=== PATIENT | female | born 1990 | race American Indian/Alaskan Native ===

== ENCOUNTER 2016-10-24 01:28 | Emergency (ER) | payer MEDICAID ==
[2016-10-24] MEDS ORDERED: Acetaminophen/HYDROcodone 325-10 MG Tab PO ONE (01:50)
[2016-10-24 01:52] VITALS: BP 128/76
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
== END 2016-10-24 02:08 | disposition home or self-care (01) ==
LOC: DL.ED 01:28
DX: M54.17 Radiculopathy, lumbosacral region (principal); K21.9 Gastro-esophageal reflux disease without esophagitis; F17.210 Nicotine dependence, cigarettes, uncomplicated; Z79.899 Other long term (current) drug therapy
CPT/HCPCS: 99282; A9270

== ENCOUNTER 2016-12-10 04:06 | Emergency (ER) | payer MEDICAID ==
[2016-12-10] MEDS ORDERED: Acetaminophen/oxyCODONE 325-5 MG Tab PO ONE (05:31)
[2016-12-10] MEDS ORDERED: predniSONE 20 MG Tab PO ONE (05:31)
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
[2016-12-10 06:34] VITALS: BP 105/83
== END 2016-12-10 06:29 | disposition home or self-care (01) ==
LOC: DL.ED 04:06
DX: M54.42 Lumbago with sciatica, left side (principal); K21.9 Gastro-esophageal reflux disease without esophagitis; F17.210 Nicotine dependence, cigarettes, uncomplicated; Z88.6 Allergy status to analgesic agent; Z88.8 Allergy status to other drugs, medicaments and biological substances
CPT/HCPCS: 96372; 99283; A9270; J2360

== ENCOUNTER 2017-02-25 22:44 | Emergency (ER) | payer MEDICAID ==
[2017-02-25 22:50] VITALS: BP 130/64
[2017-02-25] MEDS ORDERED: Acetaminophen/HYDROcodone 325-10 MG Tab PO ONE (23:03)
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
== END 2017-02-25 23:17 | disposition home or self-care (01) ==
LOC: DL.ED 22:44
DX: M51.16 Intervertebral disc disorders with radiculopathy, lumbar region (principal); K21.9 Gastro-esophageal reflux disease without esophagitis; F17.210 Nicotine dependence, cigarettes, uncomplicated; Z88.8 Allergy status to other drugs, medicaments and biological substances
CPT/HCPCS: 99282; A9270

== ENCOUNTER 2017-05-29 16:05 | Emergency (ER) | payer MEDICAID ==
[2017-05-29] MEDS ORDERED: metroNIDAZOLE 250 MG Tab PO ONE ×2 (16:06→19:30)
[2017-05-29 17:41] VITALS: BP 132/73
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
[2017-05-29 18:22] LABS: ANION GAP 8.1; CHLORIDE,CL 104 mmol/L (101-111); SODIUM,NA 137 mmol/L (135-145)
[2017-05-29] MEDS ORDERED: Dicyclomine 20 MG/2 ML SDV IM ONE (19:30)
[2017-05-29] MEDS ORDERED: metroNIDAZOLE 250 MG Tab ONE (19:41)
== END 2017-05-29 19:53 | disposition home or self-care (01) ==
LOC: DL.ED 16:05
DX: K52.9 Noninfective gastroenteritis and colitis, unspecified (principal); F17.210 Nicotine dependence, cigarettes, uncomplicated; Z88.5 Allergy status to narcotic agent; Z88.8 Allergy status to other drugs, medicaments and biological substances
CPT/HCPCS: 36415; 74176; 80053; 81001; 81025; 85025; 99284; A9270; J0500

== ENCOUNTER 2017-06-26 16:51 | Emergency (ER) | payer MEDICAID | END 2017-06-26 18:52 | disposition left against medical advice (07) | LOC: DL.ED 16:51 | DX: Z53.21 Procedure and treatment not carried out due to patient leaving prior to being seen by health care provider (principal) ==

== ENCOUNTER 2017-10-20 21:53 | Emergency (ER) | payer MEDICAID ==
[2017-10-20 22:14] VITALS: BP 136/72
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
[2017-10-20] MEDS ORDERED: Acetaminophen 325 MG Tab PO ONE (23:25)
== END 2017-10-20 23:51 | disposition home or self-care (01) ==
LOC: DL.ED 21:53
DX: S06.0X1A Concussion with loss of consciousness of 30 minutes or less, initial encounter (principal); F17.210 Nicotine dependence, cigarettes, uncomplicated; W22.8XXA Striking against or struck by other objects, initial encounter; Z88.8 Allergy status to other drugs, medicaments and biological substances
CPT/HCPCS: 70450; 99283; A9270

== ENCOUNTER 2018-01-20 21:21 | Emergency (ER) | payer OTHER, MEDICAID ==
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
[2018-01-20 22:11] LABS: ANION GAP 9.9; CHLORIDE,CL 106 mmol/L (101-111); SODIUM,NA 137 mmol/L (135-145)
[2018-01-20 23:02] VITALS: BP 128/82
--- NOTE | 2018-01-23 16:52 | EKG ---
01/20/2018 - MELISSA DESHPANDE - TIME: 9:24 p.m. FINDINGS: As per my reading, sinus rhythm at 61. Borderline T-wave abnormalities, inferior leads. [facility] /[id number]
== END 2018-01-20 22:58 | disposition home or self-care (01) ==
LOC: DL.ED 21:21
DX: Z33.1 Pregnant state, incidental (principal); R55 Syncope and collapse; Z88.6 Allergy status to analgesic agent; Z88.5 Allergy status to narcotic agent; Z87.891 Personal history of nicotine dependence
CPT/HCPCS: 36415; 80053; 80305-QW; 81001; 81025; 84484; 85025; 93005; 99284

== ENCOUNTER 2018-10-12 20:17 | Emergency (ER) | payer MEDICAID, OTHER ==
[2018-10-12 20:24] VITALS: BP 100/83; PULSE 75
[2018-10-12] MEDS ORDERED: Acetaminophen/HYDROcodone 325-10 MG Tab PO ONE (20:41)
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
== END 2018-10-12 22:06 | disposition home or self-care (01) ==
LOC: DL.ED 20:17
DX: S16.1XXA Strain of muscle, fascia and tendon at neck level, initial encounter (principal); F17.210 Nicotine dependence, cigarettes, uncomplicated; Z88.8 Allergy status to other drugs, medicaments and biological substances; Z88.6 Allergy status to analgesic agent; Z79.899 Other long term (current) drug therapy; W22.8XXA Striking against or struck by other objects, initial encounter
CPT/HCPCS: 70450; 72125; 99283; A9270

== ENCOUNTER 2019-06-10 23:47 | Emergency (ER) | payer MEDICAID | END 2019-06-11 00:27 | disposition left against medical advice (07) | LOC: DL.ED 23:47 | DX: Z53.21 Procedure and treatment not carried out due to patient leaving prior to being seen by health care provider (principal) ==

== ENCOUNTER 2019-07-06 22:35 | Emergency (ER) | payer MEDICAID ==
[2019-07-06 23:19] LABS: ANION GAP 13.7; CHLORIDE,CL 107 mmol/L (101-111); SODIUM,NA 138 mmol/L (135-145)
[2019-07-06] MEDS ORDERED: LORazepam 2 MG/ML SDV IVPUSH ONE (23:37)
[2019-07-06] MEDS ORDERED: Ondansetron 4 MG/2 ML SDV IV ONE (23:38)
[2019-07-06 23:55] LABS: ACETAMINOPHEN 180.7 ug/mL
[2019-07-07] MEDS ORDERED: Sodium Chloride 0.9% 1,000 ML IV ONE (00:43)
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
[2019-07-07 06:08] VITALS: BP 144/82; PULSE 87
== END 2019-07-07 06:10 | disposition home or self-care (01) ==
LOC: DL.ED 22:35
DX: T39.1X4A Poisoning by 4-Aminophenol derivatives, undetermined, initial encounter (principal); R06.4 Hyperventilation; F19.10 Other psychoactive substance abuse, uncomplicated; F17.210 Nicotine dependence, cigarettes, uncomplicated; E66.9 Obesity, unspecified; Z68.42 Body mass index [BMI] 45.0-49.9, adult; Z88.5 Allergy status to narcotic agent; Z88.6 Allergy status to analgesic agent; Z88.8 Allergy status to other drugs, medicaments and biological substances
CPT/HCPCS: 36415; 80053; 80307; 85025; 96361; 96374; 96375; 99284; J2060; J2405; J7030

== ENCOUNTER 2019-11-09 00:11 | Emergency (ER) | payer MEDICAID ==
[2019-11-09] MEDS: Naloxone 2 MG/2 ML Syringe IVPUSH ONE ×2 (00:15→00:23)
[2019-11-09] MEDS ORDERED: Naloxone 2 MG/2 ML Syringe IVPUSH ONE (00:51)
[2019-11-09] MEDS ORDERED: Sodium Chloride 0.9% 1,000 ML IV ONE ×2 (00:51→01:21)
[2019-11-09 00:58] LABS: ANION GAP 13.2 mEq/L (7-13); CHLORIDE,CL 104 mmol/L (98-107); SODIUM,NA 141 mmol/L (136-145)
[2019-11-09] MEDS ORDERED: Ondansetron 4 MG/2 ML SDV ONE (00:58)
[2019-11-09] MEDS ORDERED: Ondansetron 4 MG/2 ML SDV IVPUSH ONE (01:01)
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
== END 2019-11-09 02:45 | disposition home or self-care (01) ==
LOC: DL.ED 00:11
DX: F15.10 Other stimulant abuse, uncomplicated (principal); Z88.6 Allergy status to analgesic agent; Z88.8 Allergy status to other drugs, medicaments and biological substances; E11.9 Type 2 diabetes mellitus without complications; E66.9 Obesity, unspecified
CPT/HCPCS: 36415; 80053; 80305; 81001; 85025; 93005; 96361; 96374; 96375; 99284; J2310; J2405; J7030

== ENCOUNTER 2019-11-19 01:16 | Emergency (ER) | payer MEDICAID ==
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
[2019-11-19 01:33] VITALS: BP 142/64; PULSE 71
[2019-11-19 01:54] LABS: ANION GAP 13.3 mEq/L (7-13); CHLORIDE,CL 107 mmol/L (98-107); SODIUM,NA 145 mmol/L (136-145)
[2019-11-19 01:57] LABS: ACETAMINOPHEN 0 ug/mL (10-30 (Therapeutic))
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
== END 2019-11-19 03:59 | disposition home or self-care (01) ==
LOC: DL.ED 01:16
DX: M54.2 Cervicalgia (principal); F15.10 Other stimulant abuse, uncomplicated; L23.7 Allergic contact dermatitis due to plants, except food; E66.9 Obesity, unspecified; Z88.6 Allergy status to analgesic agent; Z88.8 Allergy status to other drugs, medicaments and biological substances; Z79.899 Other long term (current) drug therapy; Z68.42 Body mass index [BMI] 45.0-49.9, adult; Y04.8XXA Assault by other bodily force, initial encounter
CPT/HCPCS: 36415; 72125; 72128; 80053; 80305-QW; 80307; 81003; 85025; 99284-25

== ENCOUNTER 2019-12-05 15:59 | Emergency (ER) | payer MEDICAID ==
[2019-12-05 16:11] VITALS: BP 110/46; PULSE 82
[2019-12-05] MEDS ORDERED: Sodium Chloride 0.9% 1,000 ML IV SCH (16:45)
[2019-12-05 16:51] LABS: ANION GAP 9.5 mEq/L (7-13); CHLORIDE,CL 105 mmol/L (98-107); SODIUM,NA 140 mmol/L (136-145)
[2019-12-05] MEDS ORDERED: Iopamidol 612 MG/ML 100 ML Bottle IVPUSH ONE (17:44)
--- NOTE | 2019-12-05 18:24 | CT ---
PROCEDURE INFORMATION: Exam: CT Abdomen And Pelvis With Contrast Exam date and time: 12/05/2019 6:03 PM Age: 29 years old Clinical indication: Abdominal pain; Periumbilical; Prior surgery; Surgery date: 6+ months; Surgery type: History of ; Additional info: Bilat CVA tenderness, rlq, llq pain TECHNIQUE: Imaging protocol: Computed tomography of the abdomen and pelvis with intravenous contrast. Radiation optimization: All CT scans at this facility use at least one of these dose optimization techniques: automated exposure control; mA and/or kV adjustment per patient size (includes targeted exams where dose is matched to clinical indication); or iterative reconstruction. Contrast material: ISOVUE 300; Contrast volume: 100 ml; Contrast route: INTRAVENOUS (IV); COMPARISON: CT Abdomen Pelvis wo Cont 05/29/2017 6:16 PM FINDINGS: Lungs: The visualized portions of the lung bases are normal. Heart: The heart is not enlarged. Liver: The liver is normal. Gallbladder and bile ducts: The gallbladder wall is mildly prominent. Pancreas: The pancreas is normal. Spleen: The spleen is normal. Adrenals: The adrenal glands are normal. Kidneys and ureters: The kidneys are normal. The ureters are normal. Stomach and bowel: No over distention of bowel loops is seen. The stomach is normal. Appendix: A normal appendix is identified. Intraperitoneal space: No evidence of intraperitoneal free air. Vasculature: The aorta is normal. Lymph nodes: No pathologic lymph node enlargement is demonstrated. Bladder: The bladder is normal. Reproductive: The uterus is normal. Bones/joints: Unremarkable Soft tissues: The extra-abdominal soft tissues are normal. IMPRESSION: Mildly prominent gallbladder wall without definite evidence of cholecystitis.
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
--- NOTE | 2019-12-05 18:56 | US ---
PROCEDURE INFORMATION: Exam: US Duplex Right Lower Extremity Veins, Limited Exam date and time: 12/05/2019 6:22 PM Age: 29 years old Clinical indication: Abnormal findings; Abnormal lab test; Elevated d-dimer; Patient HX: RT. Calf pain; Additional info: Right calf pain, d dimer 1050 TECHNIQUE: Imaging protocol: Real-time Duplex ultrasound of the Right Lower Extremity with 2-D davenport scale, color Doppler flow and spectral waveform analysis with image documentation. Limited exam was focused on the right lower extremity veins. COMPARISON: No relevant prior studies available. FINDINGS: Right deep veins: Unremarkable. The common femoral, femoral, proximal profunda femoral and popliteal veins are patent without thrombus. Normal Doppler waveforms. Normal compressibility and/or augmentation response. Right superficial veins: Unremarkable. Saphenofemoral junction is patent without thrombus. Soft tissues: Unremarkable. IMPRESSION: No evidence of deep vein thrombosis.
== END 2019-12-05 20:08 ==
LOC: DL.ED 15:59
DX: R10.31 Right lower quadrant pain (principal); R10.32 Left lower quadrant pain; F17.210 Nicotine dependence, cigarettes, uncomplicated; E11.9 Type 2 diabetes mellitus without complications; E66.9 Obesity, unspecified; Z68.41 Body mass index [BMI] 40.0-44.9, adult; Z88.8 Allergy status to other drugs, medicaments and biological substances; Z88.6 Allergy status to analgesic agent
CPT/HCPCS: 36415; 74177; 80053; 80305; 81003; 81025; 85025; 85379; 87491; 87591; 93971; 96360; 99284; J7030; Q9967

== ENCOUNTER 2019-12-08 13:26 | Emergency (ER) | payer MEDICAID ==
[2019-12-08] MEDS ORDERED: Ondansetron 4 MG/2 ML SDV IVPUSH ONE (13:57)
[2019-12-08] MEDS ORDERED: Lactated Ringers 1,000 ML IV SCH (14:00)
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
[2019-12-08 14:10] LABS: ANION GAP 12.1 mEq/L (7-13); CHLORIDE,CL 105 mmol/L (98-107); SODIUM,NA 143 mmol/L (136-145)
[2019-12-08] MEDS ORDERED: Iopamidol 612 MG/ML 100 ML Bottle IVPUSH ONE (15:51)
[2019-12-08 16:25] VITALS: BP 114/52; PULSE 56
--- NOTE | 2019-12-08 16:41 | CT ---
PROCEDURE INFORMATION: Exam: CT Abdomen And Pelvis With Contrast Exam date and time: 12/08/2019 4:17 PM Age: 29 years old Clinical indication: Other: Increased pain since scan 12/05/19; Additional info: Abdominal pain (diffuse) TECHNIQUE: Imaging protocol: Computed tomography of the abdomen and pelvis with intravenous contrast. Radiation optimization: All CT scans at this facility use at least one of these dose optimization techniques: automated exposure control; mA and/or kV adjustment per patient size (includes targeted exams where dose is matched to clinical indication); or iterative reconstruction. Contrast material: [id number]; Contrast volume: 100 ml; Contrast route: INTRAVENOUS (IV); COMPARISON: CT Abdomen Pelvis w Cont 12/05/2019 6:03 PM FINDINGS: Liver: Normal. No mass. Gallbladder and bile ducts: There is mild gallbladder wall thickening . There is no evidence of biliary ductal dilation. Pancreas: Normal. No ductal dilation. Spleen: Normal. No splenomegaly. Adrenals: Normal. No mass. Kidneys and ureters: Normal. No hydronephrosis. Stomach and bowel: There is a large amount of colonic content identified. Non-specific/nonobstructive intestinal gas pattern. Mild diffuse diverticulosis is present in the colon. There is no evidence of colitis/diverticulitis. Appendix: A normal appendix is identified. There is no evidence of distention or periappendiceal inflammation to suggest appendicitis. Intraperitoneal space: Unremarkable. No free air. No significant fluid collection. Vasculature: Unremarkable. No abdominal aortic aneurysm. Lymph nodes: Unremarkable. No enlarged lymph nodes. Bladder: Unremarkable as visualized. Reproductive: Unremarkable as visualized. Bones/joints: Unremarkable. No acute fracture. Soft tissues: Unremarkable. IMPRESSION: 1. Mild gallbladder wall thickening is questioned. A similar pattern was seen previously. Correlate with LFTs. Consider gallbladder ultrasound. 2. No specific acute findings otherwise.
[2019-12-08] MEDS ORDERED: traMADol 50 MG Tab PO ONE (17:19)
== END 2019-12-08 17:32 ==
LOC: DL.ED 13:26
DX: K82.9 Disease of gallbladder, unspecified (principal); E66.9 Obesity, unspecified; Z68.42 Body mass index [BMI] 45.0-49.9, adult; Z88.8 Allergy status to other drugs, medicaments and biological substances; Z88.6 Allergy status to analgesic agent; Z79.899 Other long term (current) drug therapy
CPT/HCPCS: 36415; 74177; 80053; 80305; 81003; 82150; 83605; 83690; 85025; 96361; 96374; 99284; A9270; J2405; J7120; Q9967

== ENCOUNTER 2021-01-03 18:00 | Emergency (ER) | payer MEDICAID ==
--- NOTE | 2021-01-03 18:51 | CR ---
PROCEDURE INFORMATION: Exam: XR Left Hand Exam date and time: 01/03/2021 6:18 PM Age: 30 years old Clinical indication: Other: Smashed hand last week--pain between 2nd and 3rd metacarpals; Additional info: Injury TECHNIQUE: Imaging protocol: XR Left hand. Views: 3 or more views. COMPARISON: No relevant prior studies available. FINDINGS: Bones/joints: No acute fracture or dislocation. Soft tissues: Mild dorsal soft tissue swelling. IMPRESSION: No acute osseous abnormality.
[2021-01-03 19:16] VITALS: BP 112/55; PULSE 58
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
== END 2021-01-03 19:21 | disposition home or self-care (01) ==
LOC: DL.ED 18:00
DX: S60.222A Contusion of left hand, initial encounter (principal); E66.9 Obesity, unspecified; Z68.43 Body mass index [BMI] 50.0-59.9, adult; Z72.0 Tobacco use; Z88.8 Allergy status to other drugs, medicaments and biological substances; Z88.6 Allergy status to analgesic agent; W20.8XXA Other cause of strike by thrown, projected or falling object, initial encounter
CPT/HCPCS: 73130-LT; 99283-25

== ENCOUNTER 2021-03-07 22:29 | Emergency (ER) | payer MEDICAID | END 2021-03-07 23:48 | disposition left against medical advice (07) | LOC: DL.ED 22:29 | DX: Z53.21 Procedure and treatment not carried out due to patient leaving prior to being seen by health care provider (principal) ==

== ENCOUNTER 2021-11-19 23:04 | Emergency (ER) | payer MEDICAID ==
[2021-11-20 01:20] LABS: AMPHETAMINES,URINE POSITIVE (NEGATIVE); BARBITURATES,URINE NEGATIVE (NEGATIVE); BENZODIAZEPINE,URINE NEGATIVE (NEGATIVE); MDMA (ECSTASY), URINE POSITIVE (NEGATIVE); METHADONE,URINE NEGATIVE (NEGATIVE); METHAMPHETAMINES,URINE POSITIVE (NEGATIVE); OPIATES,URINE NEGATIVE (NEGATIVE); OXYCODONE,URINE NEGATIVE (NEGATIVE); PHENCYCLIDINE,URINE NEGATIVE (NEGATIVE); TCA,URINE NEGATIVE (NEGATIVE)
[2021-11-20 01:21] LABS: ANION GAP 14.8 mEq/L (7-13); CHLORIDE,CL 111 mmol/L (98-107); SODIUM,NA 143 mmol/L (136-145)
[2021-11-20 01:32] LABS: ESTIMATED GFR 77 mL/min (>=60)
[2021-11-20] MEDS: Sodium Chloride 0.9% 1,000 ML IV ONE ×2 (02:10→02:19)
[2021-11-20] MEDS ORDERED: Acetaminophen 325 MG Tab PO ONE (02:44)
[2021-11-20 03:37] VITALS: BP 125/49; PULSE 59
== END 2021-11-20 03:33 | disposition home or self-care (01) ==
LOC: DL.ED 23:04
DX: F15.129 Other stimulant abuse with intoxication, unspecified (principal); F16.10 Hallucinogen abuse, uncomplicated; S60.229A Contusion of unspecified hand, initial encounter; M54.2 Cervicalgia; E66.9 Obesity, unspecified; Z68.43 Body mass index [BMI] 50.0-59.9, adult; Z88.8 Allergy status to other drugs, medicaments and biological substances; Z88.5 Allergy status to narcotic agent; W18.30XA Fall on same level, unspecified, initial encounter
CPT/HCPCS: 36415; 70450; 72125; 72128; 80053; 80305; 80307; 81001; 81025; 83735; 85025; 87086; 96360; 99284; A9270; J7030

== ENCOUNTER 2022-05-26 20:42 | Emergency (ER) | payer MEDICAID ==
[2022-05-26 21:50] LABS: CORONAVIRUS COVID-19 NAA NEGATIVE (NEGATIVE)
[2022-05-26 22:22] VITALS: BP 139/67; PULSE 121
== END 2022-05-26 22:48 | disposition left against medical advice (07) ==
LOC: DL.ED 20:42
DX: Z20.822 Contact with and (suspected) exposure to COVID-19 (principal); Z53.21 Procedure and treatment not carried out due to patient leaving prior to being seen by health care provider
CPT/HCPCS: 0240U

== ENCOUNTER 2022-06-19 01:40 | Emergency (ER) | payer MEDICAID ==
[2022-06-19] MEDS ORDERED: Diphtheria,Pertussis(Acell),Tetanus Vaccine 0.5 ML Syringe IM ONE (03:01)
[2022-06-19 03:03] LABS: ANION GAP 11.7 mEq/L (7-13); CHLORIDE,CL 108 mmol/L (98-107); SODIUM,NA 143 mmol/L (136-145)
[2022-06-19 03:11] LABS: ACETAMINOPHEN 0 ug/mL (10-30 (Therapeutic)); ESTIMATED GFR 103 mL/min (>=60)
[2022-06-19 03:27] LABS: AMPHETAMINES,URINE POSITIVE (NEGATIVE); BARBITURATES,URINE NEGATIVE (NEGATIVE); BENZODIAZEPINE,URINE NEGATIVE (NEGATIVE); MDMA (ECSTASY), URINE NEGATIVE (NEGATIVE); METHADONE,URINE NEGATIVE (NEGATIVE); METHAMPHETAMINES,URINE POSITIVE (NEGATIVE); OPIATES,URINE NEGATIVE (NEGATIVE); OXYCODONE,URINE NEGATIVE (NEGATIVE); PHENCYCLIDINE,URINE NEGATIVE (NEGATIVE); TCA,URINE NEGATIVE (NEGATIVE)
== END 2022-06-19 04:24 | disposition home or self-care (01) ==
LOC: DL.ED 01:40
DX: S01.01XA Laceration without foreign body of scalp, initial encounter (principal); E66.9 Obesity, unspecified; Z23 Encounter for immunization; Z88.8 Allergy status to other drugs, medicaments and biological substances; Z88.6 Allergy status to analgesic agent; Y04.0XXA Assault by unarmed brawl or fight, initial encounter
CPT/HCPCS: 12002; 36415; 70450; 70486; 72125; 80053; 80143; 80179; 80305-QW; 80307; 81001; 83605; 85025; 87040; 87086; 90471; 90715; 99285-25

== ENCOUNTER 2022-06-29 23:28 | Emergency (ER) | payer MEDICAID ==
[2022-06-29 23:58] LABS: ANION GAP 7.7 mEq/L (7-13); CHLORIDE,CL 105 mmol/L (98-107); SODIUM,NA 140 mmol/L (136-145)
[2022-06-30 00:04] LABS: ESTIMATED GFR 79 mL/min (>=60)
[2022-06-30 00:20] VITALS: BP 125/99; PULSE 96
== END 2022-06-30 01:52 | disposition home or self-care (01) ==
LOC: DL.ED 23:28
DX: S16.1XXA Strain of muscle, fascia and tendon at neck level, initial encounter (principal); S00.83XA Contusion of other part of head, initial encounter; K21.9 Gastro-esophageal reflux disease without esophagitis; F17.210 Nicotine dependence, cigarettes, uncomplicated; E66.9 Obesity, unspecified; Z68.32 Body mass index [BMI] 32.0-32.9, adult; Z88.8 Allergy status to other drugs, medicaments and biological substances; Y04.0XXA Assault by unarmed brawl or fight, initial encounter
CPT/HCPCS: 36415; 70450; 70486; 72125; 80053; 80307; 85025; 99284; 99285

== ENCOUNTER 2022-07-29 23:50 | Emergency (ER) | payer MEDICAID ==
[2022-07-30 00:10] VITALS: BP 138/98; PULSE 101
== END 2022-07-30 00:23 ==
LOC: DL.ED 23:50
DX: F41.9 Anxiety disorder, unspecified (principal); E66.9 Obesity, unspecified; Z68.43 Body mass index [BMI] 50.0-59.9, adult; Z88.6 Allergy status to analgesic agent; Z88.8 Allergy status to other drugs, medicaments and biological substances
CPT/HCPCS: 99282; 99284

== ENCOUNTER 2022-07-30 02:31 | Emergency (ER) | payer MEDICAID ==
[2022-07-30 02:10] VITALS: BP 144/98; PULSE 74
== END 2022-07-30 02:33 ==
LOC: DL.ED 02:31
DX: S50.352A Superficial foreign body of left elbow, initial encounter (principal); E66.01 Morbid (severe) obesity due to excess calories; Z68.43 Body mass index [BMI] 50.0-59.9, adult; Z88.8 Allergy status to other drugs, medicaments and biological substances; Z88.6 Allergy status to analgesic agent; Z79.899 Other long term (current) drug therapy; W45.8XXA Other foreign body or object entering through skin, initial encounter
CPT/HCPCS: 73080-LT; 99283

== ENCOUNTER 2022-09-04 22:22 | Emergency (ER) | payer MEDICAID ==
[2022-09-04 22:51] VITALS: BP 136/97; PULSE 104
[2022-09-04] MEDS ORDERED: Penicillin G Benzathine/Procaine 600-600 1.2 Millunits/2 ML Syringe IM ONE (22:53)
[2022-09-04] MEDS ORDERED: Dexamethasone 4 MG/ML SDV IM ONE (22:57)
== END 2022-09-04 23:34 | disposition home or self-care (01) ==
LOC: DL.ED 22:22
DX: J02.9 Acute pharyngitis, unspecified (principal); E66.9 Obesity, unspecified; Z68.43 Body mass index [BMI] 50.0-59.9, adult; Z88.6 Allergy status to analgesic agent; Z88.8 Allergy status to other drugs, medicaments and biological substances; Z79.899 Other long term (current) drug therapy
CPT/HCPCS: 96372; 99282; J0558; J1100

== ENCOUNTER 2022-10-20 22:25 | Emergency (ER) | payer OTHER, MEDICAID ==
[2022-10-21 00:29] VITALS: BP 124/75; PULSE 91
== END 2022-10-21 00:25 | disposition home or self-care (01) ==
LOC: DL.ED 22:25
DX: S29.012A Strain of muscle and tendon of back wall of thorax, initial encounter (principal); F17.210 Nicotine dependence, cigarettes, uncomplicated; E66.9 Obesity, unspecified; Z88.8 Allergy status to other drugs, medicaments and biological substances; Z88.6 Allergy status to analgesic agent; Z79.899 Other long term (current) drug therapy; V89.2XXA Person injured in unspecified motor-vehicle accident, traffic, initial encounter; Y92.410 Unspecified street and highway as the place of occurrence of the external cause
CPT/HCPCS: 99284

== ENCOUNTER 2022-11-06 13:37 | Emergency (ER) | payer MEDICAID ==
[2022-11-06] MEDS ORDERED: Lidocaine 2% Viscous Solution 15 ML UD PO ONE ×2 (13:38→16:00)
[2022-11-06 14:08] VITALS: BP 134/90; PULSE 103
[2022-11-06] MEDS ORDERED: Take Home: Lidocaine 2% Viscous Solution 15 ML UD, 2 Cup Pack PO ONE (15:48)
[2022-11-06] MEDS ORDERED: methylPREDNISolone Sodium Succinate 125 MG/2 ML SDV IM ONE (15:48)
[2022-11-06] MEDS ORDERED: Lidocaine 2% Viscous Solution 15 ML UD ONE ×2 (15:52→16:00)
[2022-11-06] MEDS ORDERED: Take Home: Amoxicillin 500 MG, 6 Cap Pack PO ONE (16:10)
[2022-11-06] MEDS ORDERED: Take Home: predniSONE 20 MG, 4 Tab Pack PO ONE (16:13)
== END 2022-11-06 16:21 | disposition home or self-care (01) ==
LOC: DL.ED 13:37
DX: K08.89 Other specified disorders of teeth and supporting structures (principal); F17.210 Nicotine dependence, cigarettes, uncomplicated; K21.9 Gastro-esophageal reflux disease without esophagitis; E66.9 Obesity, unspecified; Z68.43 Body mass index [BMI] 50.0-59.9, adult; Z88.6 Allergy status to analgesic agent; Z88.8 Allergy status to other drugs, medicaments and biological substances; Z79.899 Other long term (current) drug therapy
CPT/HCPCS: 64400; 96372; 99282; A9270-GY; J2930

== ENCOUNTER 2022-12-05 00:44 | Emergency (ER) | payer MEDICAID ==
[2022-12-05] MEDS ORDERED: Amoxicillin/Clavulanate K 875-125 MG Tab PO ONE (01:53)
[2022-12-05] MEDS ORDERED: Bupivacaine 0.25% 10 ML SDV INJECT ONE (01:53)
[2022-12-05] MEDS ORDERED: Take Home: Amoxicillin/Clavulanate K 875-125 MG Tab, 6 Tab Pack PO ONE (01:54)
[2022-12-05] MEDS ORDERED: Acetaminophen 500 MG Tab PO ONE (02:55)
[2022-12-05 03:13] VITALS: BP 123/95; PULSE 86
== END 2022-12-05 04:56 | disposition home or self-care (01) ==
LOC: DL.ED 00:44
DX: K04.7 Periapical abscess without sinus (principal); K02.9 Dental caries, unspecified; E66.9 Obesity, unspecified; Z68.43 Body mass index [BMI] 50.0-59.9, adult; Z88.8 Allergy status to other drugs, medicaments and biological substances; Z88.6 Allergy status to analgesic agent; Z98.890 Other specified postprocedural states
CPT/HCPCS: 64400; 99282; 99283; A9270; J3490

== ENCOUNTER 2022-12-05 17:09 | Emergency (ER) | payer MEDICAID ==
[~2022-12-05 17:09] MED LIST: Sodium Chloride 0.9% 10 ML Syringe FLUSH PRN
[2022-12-05] MEDS ORDERED: levETIRAcetam in NaCl (iso-os) 1,500 MG in Premix Bag 1 BAG IV ONE ×2 (17:19)
[2022-12-05] MEDS ORDERED: diphenhydrAMINE 50 MG/ML SDV IVPUSH ONE (17:19)
[2022-12-05 17:29] LABS: BASOPHILS PERCENT AUTO 0.6 % (0.0-1.0); EOSINOPHILS PERCENT AUTO 1.8 % (1.0-3.0); HEMATOCRIT 41.7 % (37.0-47.0); HEMOGLOBIN 13.5 g/dL (12.0-16.0); LYMPHOCYTES PERCENT AUTO 24.4 % (20.5-50.1); MEAN CORPUSCULAR HEMOGLOBIN 27.6 pg (27.0-34.0); MEAN CORPUSCULAR HGB CONC 32.4 g/dL (33.0-35.0); MEAN CORPUSCULAR VOLUME 85.3 fL (80-100); MONOCYTES PERCENT AUTO 7.2 % (2-8); PLATELET COUNT,PLT 390 10^3/uL (150-450); RED BLOOD CELL COUNT 4.89 10^6/uL (4.2-5.4); WHITE BLOOD CELL COUNT,WBC 7.1 10^3/uL (5.0-10.0)
[2022-12-05 17:49] LABS: ALANINE AMINOTRANSFERASE,ALT 21 U/L (14-59); ALBUMIN 3.9 g/dL (3.4-5.0); ALKALINE PHOSPHATASE 92 U/L (46-116); ANION GAP 15.8 mEq/L (7-13); ASPARTATE AMNIOTRANSFERASE,AST 18 U/L (15-37); BILIRUBIN TOTAL 0.6 mg/dL (0.2-1.0); BLOOD UREA NITROGEN,BUN 12 mg/dL (7-18); BUN/CREATININE RATIO 13.3 (No establ ref range); CALCIUM 8.8 mg/dL (8.5-10.1); CARBON DIOXIDE,CO2 23 mmol/L (21-32); CHLORIDE,CL 107 mmol/L (98-107); GLUCOSE RANDOM 89 mg/dL (70-99); POTASSIUM,K 3.8 mmol/L (3.5-5.1); PROTEIN TOTAL,TP 7.9 g/dL (6.4-8.2); SODIUM,NA 142 mmol/L (136-145)
[2022-12-05 17:51] LABS: ESTIMATED GFR 86 mL/min (>=60)
[2022-12-05 17:57] VITALS: BP 135/78; PULSE 61
== END 2022-12-05 19:52 | disposition home or self-care (01) ==
LOC: DL.ED 17:09
DX: F41.9 Anxiety disorder, unspecified (principal); E66.9 Obesity, unspecified; Z68.43 Body mass index [BMI] 50.0-59.9, adult; Z79.899 Other long term (current) drug therapy; Z98.890 Other specified postprocedural states; Z88.8 Allergy status to other drugs, medicaments and biological substances; Z88.6 Allergy status to analgesic agent
CPT/HCPCS: 36415; 80053; 83605; 85025; 96374; 96375; 99283; 99284; J1200; J1953; J3490

== ENCOUNTER 2022-12-08 11:27 | Emergency (ER) | payer MEDICAID ==
[2022-12-08 11:55] VITALS: BP 141/90; PULSE 77
[2022-12-08 13:18] LABS: BASOPHILS PERCENT AUTO 0.2 % (0.0-1.0); EOSINOPHILS PERCENT AUTO 1.4 % (1.0-3.0); HEMATOCRIT 41.1 % (37.0-47.0); HEMOGLOBIN 13.2 g/dL (12.0-16.0); MEAN CORPUSCULAR HEMOGLOBIN 27.7 pg (27.0-34.0); MEAN CORPUSCULAR HGB CONC 32.1 g/dL (33.0-35.0); MEAN CORPUSCULAR VOLUME 86.3 fL (80-100); MONOCYTES PERCENT AUTO 5.6 % (2-8); NEUTROPHILS PERCENT AUTO 75.8 % (42.2-75.2); PLATELET COUNT,PLT 368 10^3/uL (150-450); RED BLOOD CELL COUNT 4.76 10^6/uL (4.2-5.4); WHITE BLOOD CELL COUNT,WBC 8.7 10^3/uL (5.0-10.0)
[2022-12-08] MEDS ORDERED: Lidocaine 2% Viscous Solution 15 ML UD PO ONE (13:22)
[2022-12-08 13:32] LABS: C-REACTIVE PROTEIN 0.7 mg/dL (0.0-0.9)
[2022-12-08 13:41] LABS: LACTIC ACID 0.4 mmol/L (0.4-2.0)
[2022-12-08] MEDS ORDERED: HYDROmorphone 1 MG/ML Syringe IM ONE (13:50)
[2022-12-08] MEDS ORDERED: cefTRIAXone 1 GM, Lidocaine 1% 2.1 ML IM ONE ×2 (14:32)
== END 2022-12-08 14:43 | disposition home or self-care (01) ==
LOC: DL.ED 11:27
DX: K04.7 Periapical abscess without sinus (principal); E66.9 Obesity, unspecified; Z68.43 Body mass index [BMI] 50.0-59.9, adult; Z88.6 Allergy status to analgesic agent; Z88.8 Allergy status to other drugs, medicaments and biological substances; Z79.899 Other long term (current) drug therapy
CPT/HCPCS: 36415; 70100; 83605; 84145; 85025; 86140; 87040; 87070; 96372; 99283; A9270; J1170

== ENCOUNTER 2023-02-12 21:57 | Emergency (ER) | payer MEDICAID ==
[2023-02-12 22:08] VITALS: BP 131/88; PULSE 68
[2023-02-12] MEDS ORDERED: Take Home: Amoxicillin/Clavulanate K 875-125 MG Tab, 6 Tab Pack PO ONE (22:45)
[2023-02-12] MEDS ORDERED: Take Home: traMADol 50 MG, 4 Tab Pack PO ONE (22:45)
[2023-02-12] MEDS ORDERED: cefTRIAXone 1 GM Vial IM ONE (23:02)
[2023-02-12] MEDS ORDERED: Lidocaine 1% 5 ML VIAL ONE (23:06)
[2023-02-12] MEDS ORDERED: Lidocaine 1% 5 ML VIAL INJECT ONE (23:09)
== END 2023-02-12 23:20 | disposition home or self-care (01) ==
LOC: DL.ED 21:57
DX: K04.7 Periapical abscess without sinus (principal); F17.210 Nicotine dependence, cigarettes, uncomplicated; K21.9 Gastro-esophageal reflux disease without esophagitis; E66.9 Obesity, unspecified; Z68.43 Body mass index [BMI] 50.0-59.9, adult; Z88.6 Allergy status to analgesic agent; Z88.8 Allergy status to other drugs, medicaments and biological substances
CPT/HCPCS: 96372; 99282; A9270; J0696; J3490

== ENCOUNTER 2023-04-20 21:24 | Emergency (ER) | payer MEDICAID ==
[2023-04-20] MEDS ORDERED: Benzonatate 100 MG Cap PO ONE (21:25)
[2023-04-20] MEDS ORDERED: Albuterol 0.083% 2.5 MG/3 ML Neb Soln NEB ONE (21:36)
[2023-04-20] MEDS ORDERED: cefTRIAXone 2 GM Vial IVPUSH ONE (21:38)
[2023-04-20] MEDS ORDERED: Sodium Chloride 0.9% 10 ML Syringe FLUSH PRN (21:38)
[2023-04-20] MEDS ORDERED: Take Home: Doxycycline 100 MG Cap, 4 Cap Pack PO ONE (21:48)
[2023-04-20] MEDS ORDERED: Benzonatate 100 MG Cap ONE (21:57)
[2023-04-20 22:18] VITALS: BP 131/67; PULSE 88
== END 2023-04-20 22:24 | disposition home or self-care (01) ==
LOC: DL.ED 21:24
DX: J18.9 Pneumonia, unspecified organism (principal); E66.9 Obesity, unspecified; F17.210 Nicotine dependence, cigarettes, uncomplicated; Z79.899 Other long term (current) drug therapy; Z88.6 Allergy status to analgesic agent; Z88.1 Allergy status to other antibiotic agents; Z88.8 Allergy status to other drugs, medicaments and biological substances; Z68.43 Body mass index [BMI] 50.0-59.9, adult
CPT/HCPCS: 94640; 96374; 99284; A9270; J0696; 99283; J3490; J7613-GY

== ENCOUNTER 2023-04-27 18:15 | Emergency (ER) | payer MEDICAID ==
[~2023-04-27 18:15] MED LIST changes: +Albuterol/Ipratropium 3.0-0.5 MG/3 ML Neb Soln NEB ONE; +Magnesium Sulfate/Water 2 GM in Premix Bag 1 BAG IV ONE; -Sodium Chloride 0.9% 10 ML Syringe FLUSH PRN
[2023-04-27 18:26] LABS: BASOPHILS PERCENT AUTO 0.5 % (0.0-1.0); EOSINOPHILS PERCENT AUTO 1.1 % (1.0-3.0); HEMATOCRIT 42.5 % (37.0-47.0); HEMOGLOBIN 13.9 g/dL (12.0-16.0); LYMPHOCYTES PERCENT AUTO 21.5 % (20.5-50.1); MEAN CORPUSCULAR HEMOGLOBIN 27.4 pg (27.0-34.0); MEAN CORPUSCULAR HGB CONC 32.7 g/dL (33.0-35.0); MEAN CORPUSCULAR VOLUME 83.8 fL (80-100); NEUTROPHILS PERCENT AUTO 67.9 % (42.2-75.2); PLATELET COUNT,PLT 438 10^3/uL (150-450); RED BLOOD CELL COUNT 5.07 10^6/uL (4.2-5.4); WHITE BLOOD CELL COUNT,WBC 10.2 10^3/uL (5.0-10.0)
[2023-04-27] MEDS ORDERED: Albuterol 0.083% 2.5 MG/3 ML Neb Soln NEB ONE (18:39)
[2023-04-27 18:47] LABS: A/G RATIO 0.9; ALANINE AMINOTRANSFERASE,ALT 19 U/L (14-59); ALKALINE PHOSPHATASE 88 U/L (46-116); ANION GAP 15.5 mEq/L (7-13); ASPARTATE AMNIOTRANSFERASE,AST 14 U/L (15-37); BILIRUBIN TOTAL 0.6 mg/dL (0.2-1.0); BLOOD UREA NITROGEN,BUN 23 mg/dL (7-18); BUN/CREATININE RATIO 18.5 (No establ ref range); CALCIUM 9.1 mg/dL (8.5-10.1); CARBON DIOXIDE,CO2 22 mmol/L (21-32); CHLORIDE,CL 106 mmol/L (98-107); CREATININE 1.24 mg/dL (0.55-1.02); EST CRCL DRUG DOSING (CG) 69.13 mL/min; GLUCOSE RANDOM 97 mg/dL (70-99); POTASSIUM,K 3.5 mmol/L (3.5-5.1); PROTEIN TOTAL,TP 8.6 g/dL (6.4-8.2); SODIUM,NA 140 mmol/L (136-145)
[2023-04-27 18:49] LABS: ESTIMATED GFR 59 mL/min (>=60)
[2023-04-27 18:53] LABS: HCG QUALITATIVE,SERUM NEGATIVE (NEGATIVE)
[2023-04-27] MEDS ORDERED: diphenhydrAMINE 50 MG/ML SDV IVPUSH ONE (19:44)
[2023-04-27] MEDS ORDERED: LORazepam 2 MG/ML SDV IVPUSH ONE (19:56)
[2023-04-27] MEDS ORDERED: LORazepam 2 MG/ML SDV ONE (19:56)
[2023-04-27] MEDS ORDERED: Iopamidol 612 MG/ML 100 ML Bottle IVPUSH ONE (20:08)
[2023-04-27] MEDS ORDERED: Dexamethasone 4 MG/ML SDV IVPUSH ONE (20:53)
[2023-04-27] MEDS ORDERED: Albuterol 6.7 GM Inhaler INH ONE (21:18)
[2023-04-27] MEDS ORDERED: Sodium Chloride 0.9% 10 ML Syringe FLUSH SCH (21:30)
[2023-04-27 21:33] VITALS: BP 128/88; PULSE 113
[2023-04-27 21:47] LABS: AMPHETAMINES,URINE POSITIVE (NEGATIVE); BARBITURATES,URINE NEGATIVE (NEGATIVE); BENZODIAZEPINE,URINE POSITIVE (NEGATIVE); MDMA (ECSTASY), URINE POSITIVE (NEGATIVE); METHADONE,URINE NEGATIVE (NEGATIVE); METHAMPHETAMINES,URINE POSITIVE (NEGATIVE); OPIATES,URINE NEGATIVE (NEGATIVE); OXYCODONE,URINE NEGATIVE (NEGATIVE); PHENCYCLIDINE,URINE NEGATIVE (NEGATIVE); TCA,URINE NEGATIVE (NEGATIVE)
== END 2023-04-27 21:49 | disposition home or self-care (01) ==
LOC: DL.ED 18:15
DX: J98.4 Other disorders of lung (principal); E66.9 Obesity, unspecified; Z68.42 Body mass index [BMI] 45.0-49.9, adult; Z88.8 Allergy status to other drugs, medicaments and biological substances
CPT/HCPCS: 36415; 71045; 71260; 80053; 80305; 84703; 85025; 85379; 96365; 96366; 96375; 99284; 99285; A9270; J1100; J1200; J2060; J3475; Q9967; J3490; J7613-GY; J7620-GY

== ENCOUNTER 2023-04-30 17:35 | Inpatient (IN) | payer MEDICAID ==
[2023-04-30] MEDS ORDERED: LORazepam 2 MG/ML SDV IVPUSH ONE (17:51)
[2023-04-30] MEDS ORDERED: Sodium Chloride 0.9% 10 ML Syringe FLUSH PRN (17:51)
[2023-04-30] MEDS ORDERED: Albuterol 0.083% 2.5 MG/3 ML Neb Soln NEB ONE (18:02)
[2023-04-30] MEDS ORDERED: Magnesium Sulfate/Water 2 GM in Premix Bag 1 BAG IV ONE ×2 (18:05→18:07)
[2023-04-30] MEDS ORDERED: Sodium Chloride 0.9% 1,000 ML IV ONE ×2 (18:09→19:04)
[2023-04-30] MEDS ORDERED: methylPREDNISolone Sodium Succinate 125 MG/2 ML SDV IVPUSH ONE (18:09)
[2023-04-30 18:27] LABS: BASOPHILS PERCENT AUTO 0.4 % (0.0-1.0); EOSINOPHILS PERCENT AUTO 1.5 % (1.0-3.0); HEMATOCRIT 39.3 % (37.0-47.0); HEMOGLOBIN 12.8 g/dL (12.0-16.0); LYMPHOCYTES PERCENT AUTO 10.3 % (20.5-50.1); MEAN CORPUSCULAR HEMOGLOBIN 27.6 pg (27.0-34.0); MEAN CORPUSCULAR HGB CONC 32.6 g/dL (33.0-35.0); MEAN CORPUSCULAR VOLUME 84.9 fL (80-100); MONOCYTES PERCENT AUTO 3.1 % (2-8); NEUTROPHILS PERCENT AUTO 84.7 % (42.2-75.2); PLATELET COUNT,PLT 404 10^3/uL (150-450); RED BLOOD CELL COUNT 4.63 10^6/uL (4.2-5.4)
[2023-04-30 18:33] LABS: APPEARANCE,URINE CLEAR (CLEAR); BILIRUBIN,URINE NEGATIVE (NEGATIVE); COLOR,URINE YELLOW (YELLOW); GLUCOSE,URINE NEGATIVE (NEGATIVE); KETONES,URINE NEGATIVE (NEGATIVE); LEUKOCYTE ESTERASE,URINE NEGATIVE (NEGATIVE); NITRITE,URINE NEGATIVE (NEGATIVE); OCCULT BLOOD,URINE TRACE-INTACT (NEGATIVE); PH,URINE 6.5 (5.0-9.0); PROTEIN,URINE NEGATIVE (NEGATIVE); UROBILINOGEN,URINE 0.2 mg/dL (0.2-1.0)
[2023-04-30 18:38] LABS: AMPHETAMINES,URINE NEGATIVE (NEGATIVE); BARBITURATES,URINE NEGATIVE (NEGATIVE); BENZODIAZEPINE,URINE POSITIVE (NEGATIVE); MDMA (ECSTASY), URINE NEGATIVE (NEGATIVE); METHADONE,URINE NEGATIVE (NEGATIVE); METHAMPHETAMINES,URINE NN (NEGATIVE); OPIATES,URINE POSITIVE (NEGATIVE); OXYCODONE,URINE NEGATIVE (NEGATIVE); PHENCYCLIDINE,URINE NEGATIVE (NEGATIVE); TCA,URINE NEGATIVE (NEGATIVE)
[2023-04-30 18:43] LABS: BACTERIA,URINE RARE /HPF (0-FEW/HPF); EPITHELIAL CELLS,URINE OCCASIONAL /HPF (NOT SEEN); MUCUS,URINE RARE /LPF (NOT SEEN); RBC,URINE 0-5 /HPF (0-5); WBC,URINE NOT SEEN /HPF (0-5/HPF)
[2023-04-30 18:47] LABS: A/G RATIO 0.9; ALANINE AMINOTRANSFERASE,ALT 18 U/L (14-59); ALBUMIN 3.4 g/dL (3.4-5.0); ALKALINE PHOSPHATASE 74 U/L (46-116); ANION GAP 14.3 mEq/L (7-13); ASPARTATE AMNIOTRANSFERASE,AST 9 U/L (15-37); BILIRUBIN TOTAL 0.4 mg/dL (0.2-1.0); BLOOD UREA NITROGEN,BUN 19 mg/dL (7-18); BUN/CREATININE RATIO 19.2 (No establ ref range); CALCIUM 8.2 mg/dL (8.5-10.1); CARBON DIOXIDE,CO2 21 mmol/L (21-32); CHLORIDE,CL 108 mmol/L (98-107); CREATININE 0.99 mg/dL (0.55-1.02); EST CRCL DRUG DOSING (CG) 72.05 mL/min; GLUCOSE RANDOM 103 mg/dL (70-99); POTASSIUM,K 3.3 mmol/L (3.5-5.1); PROTEIN TOTAL,TP 7.1 g/dL (6.4-8.2); SODIUM,NA 140 mmol/L (136-145)
[2023-04-30 18:48] LABS: C-REACTIVE PROTEIN < 0.50 ng/dL (<=0.50); ESTIMATED GFR 77 mL/min (>=60)
[2023-04-30 18:53] LABS: LACTIC ACID 2.1 mmol/L (0.4-2.0)
[2023-04-30 19:07] LABS: CORONAVIRUS COVID-19 NAA NEGATIVE (NEGATIVE); INFLUENZA A NAA NEGATIVE (NEGATIVE); INFLUENZA B NAA NEGATIVE (NEGATIVE); RESPIRATORY SYNCYTIAL VIR NAA NEGATIVE (NEGATIVE)
[2023-04-30] MEDS ORDERED: Potassium Chloride 10 MEQ Tab.ER PO ONE (19:14)
[2023-04-30] MEDS ORDERED: Iopamidol 755 Mg/ML 100 ML Bottle IVPUSH ONE (20:26)
[2023-04-30] MEDS ORDERED: Morphine 4 MG/ML Syringe IVPUSH ONE (21:18)
[2023-04-30] MEDS ORDERED: Heparin Sodium 5,000 Units/ML Vial IVPUSH ONE (22:09)
[2023-04-30] MEDS ORDERED: Heparin Sodium/0.45% NaCl 25,000 UNITS/500 ML BAG IV SCH ×2 (22:15→22:45)
[2023-04-30 22:24] LABS: INR 0.9 (0.9-1.2); PROTHROMBIN TIME 9.3 SEC (9.0-12.0); PTT,PARTIAL THROMBOPLSTIN TIME 24.7 SEC (22.0-34.0)
[2023-04-30] MEDS ORDERED: Polyethylene Glycol 3350 Powder 17 GM Packet PO PRN (23:36)
[2023-04-30] MEDS ORDERED: Sennosides/Docusate Sodium 50-8.6 MG Tab PO PRN (23:36)
[2023-04-30] MEDS ORDERED: Acetaminophen 325 MG Tab PO PRN (23:36)
[2023-04-30] MEDS ORDERED: Albuterol/Ipratropium 3.0-0.5 MG/3 ML Neb Soln NEB PRN (23:36)
[2023-04-30] MEDS ORDERED: HYDROmorphone 0.5 MG/0.5 ML Syringe IVPUSH PRN (23:36)
[2023-04-30] MEDS ORDERED: Naloxone 2 MG/2 ML Syringe IVPUSH PRN (23:36)
[2023-04-30] MEDS ORDERED: Ondansetron 4 MG/2 ML SDV IVPUSH PRN (23:36)
[2023-04-30] MEDS ORDERED: Magnesium Hydroxide 400 MG/5 ML Susp 30 ML Cup PO PRN (23:36)
[2023-04-30] MEDS ORDERED: Temazepam 15 MG Cap PO PRN (23:36)
[2023-04-30] MEDS ORDERED: Codeine/guaiFENesin 10-100 MG/5 ML Syrup 5 ML Cup PO PRN (23:41)
[2023-04-30] MEDS ORDERED: hydrALAZINE 20 MG/ML SDV IVPUSH PRN (23:42)
[2023-04-30] MEDS ORDERED: LORazepam 2 MG/ML SDV IVPUSH PRN (23:42)
[2023-04-30] MEDS ORDERED: Metoprolol Tartrate 5 MG/5 ML SDV IVPUSH PRN (23:42)
[2023-04-30] MEDS ORDERED: Flumazenil 0.1 MG/ML 5 ML MDV IVPUSH PRN (23:42)
[2023-04-30] MEDS ORDERED: Topiramate 25 MG Tab PO SCH (23:45)
[2023-04-30] MEDS ORDERED: Sodium Chloride 0.9% 1,000 ML IV SCH (23:45)
[2023-04-30] MEDS ORDERED: oxyCODONE ER 10 MG TAB.ER PO ONE (23:55)
[2023-04-30 23:59] LABS: HEMOGLOBIN A1C 5.3 % (<5.7)
[2023-05-01] MEDS ORDERED: oxyCODONE ER 10 MG TAB.ER PO ONE (02:30)
[2023-05-01 06:27] LABS: BASOPHILS PERCENT AUTO 0.2 % (0.0-1.0); HEMATOCRIT 36.5 % (37.0-47.0); HEMOGLOBIN 11.7 g/dL (12.0-16.0); LYMPHOCYTES PERCENT AUTO 8.6 % (20.5-50.1); MEAN CORPUSCULAR HEMOGLOBIN 27.5 pg (27.0-34.0); MEAN CORPUSCULAR HGB CONC 32.1 g/dL (33.0-35.0); MEAN CORPUSCULAR VOLUME 85.9 fL (80-100); MONOCYTES PERCENT AUTO 3.7 % (2-8); NEUTROPHILS PERCENT AUTO 87.5 % (42.2-75.2); PLATELET COUNT,PLT 347 10^3/uL (150-450); RED BLOOD CELL COUNT 4.25 10^6/uL (4.2-5.4); WHITE BLOOD CELL COUNT,WBC 11.7 10^3/uL (5.0-10.0)
[2023-05-01 06:51] LABS: ALBUMIN 2.8 g/dL (3.4-5.0); ANION GAP 13.1 mEq/L (7-13); BILIRUBIN TOTAL 0.2 mg/dL (0.2-1.0); BUN/CREATININE RATIO 18.1 (No establ ref range); CALCIUM 7.6 mg/dL (8.5-10.1); CREATININE 0.83 mg/dL (0.55-1.02); EST CRCL DRUG DOSING (CG) 85.94 mL/min; MAGNESIUM 2.3 mg/dL (1.8-2.4); POTASSIUM,K 4.1 mmol/L (3.5-5.1); PROTEIN TOTAL,TP 6.3 g/dL (6.4-8.2)
[2023-05-01 06:55] LABS: A/G RATIO 0.8
[2023-05-01] MEDS: Benzonatate 100 MG Cap PO SCH ×2 (08:35→13:04)
[2023-05-01] MEDS: Topiramate 25 MG Tab PO SCH ×2 (08:36→13:04)
[2023-05-01] MEDS ORDERED: Topiramate 100 MG Tab PO SCH (09:00)
[2023-05-01] MEDS ORDERED: FLU (Fluarix Quad) QS2023-24(6MOS UP)/PF 60 MCG/0.5 ML Syringe IM ONE (09:00)
[2023-05-01] MEDS ORDERED: oxyCODONE ER 10 MG TAB.ER PO SCH (09:00)
[2023-05-01] MEDS: Acetaminophen/oxyCODONE 325-5 MG Tab PO PRN ×2 (11:32→16:40)
[2023-05-01] MEDS ORDERED: Heparin Sodium 5,000 Units/ML Vial IVPUSH ONE (12:54)
[2023-05-01 17:15] VITALS: BP 101/44; PULSE 58
[2023-05-01] MEDS ORDERED: Apixaban 5 MG Tab PO SCH ×2 (21:00)
== END 2023-05-01 18:20 | DRG 176 ==
LOC: DL.ED 17:35 → DL.MS 23:35
PROVIDERS: ADMIT Internal Medicine; ATTEND Internal Medicine
DX: I26.94 Multiple subsegmental thrombotic pulmonary emboli without acute cor pulmonale (principal); E87.20 Acidosis, unspecified; Z68.43 Body mass index [BMI] 50.0-59.9, adult; E66.9 Obesity, unspecified; M54.9 Dorsalgia, unspecified; E87.8 Other disorders of electrolyte and fluid balance, not elsewhere classified; G89.29 Other chronic pain; K21.9 Gastro-esophageal reflux disease without esophagitis; F43.10 Post-traumatic stress disorder, unspecified; H54.7 Unspecified visual loss; G40.909 Epilepsy, unspecified, not intractable, without status epilepticus; D64.9 Anemia, unspecified; D72.829 Elevated white blood cell count, unspecified; R73.9 Hyperglycemia, unspecified; E87.6 Hypokalemia; Z88.6 Allergy status to analgesic agent; Z11.52 Encounter for screening for COVID-19; Z88.8 Allergy status to other drugs, medicaments and biological substances; Z79.899 Other long term (current) drug therapy; Z20.822 Contact with and (suspected) exposure to COVID-19
CPT/HCPCS: 0241U; 36415; 71046; 71275; 80053; 80305; 81001; 81025; 82306; 83036; 83605; 83735; 83880; 84145; 85025; 85379; 85610; 85730; 86140; 87040; 96361; 96365; 96367; 96375; 96376; 99222; 99239; 99285; A9270-GY; J1644; J2060; J2270; J2405; J2930; J3475; J3490; J7030; J7613-GY; J7620-GY; Q9967

== ENCOUNTER 2023-05-06 16:00 | Emergency (ER) | payer MEDICAID ==
[2023-05-06 16:19] VITALS: BP 134/83; PULSE 66
== END 2023-05-06 16:50 | disposition home or self-care (01) ==
LOC: DL.ED 16:00
DX: J98.4 Other disorders of lung (principal); I26.94 Multiple subsegmental thrombotic pulmonary emboli without acute cor pulmonale; E66.9 Obesity, unspecified; Z68.43 Body mass index [BMI] 50.0-59.9, adult; Z88.8 Allergy status to other drugs, medicaments and biological substances; Z88.6 Allergy status to analgesic agent
CPT/HCPCS: 99283

== ENCOUNTER 2023-05-07 21:03 | Emergency (ER) | payer MEDICAID | END 2023-05-07 22:05 | disposition left against medical advice (07) | LOC: DL.ED 21:03 | DX: Z53.21 Procedure and treatment not carried out due to patient leaving prior to being seen by health care provider (principal) ==

== ENCOUNTER 2023-05-08 01:23 | Emergency (ER) | payer MEDICAID ==
[2023-05-08] MEDS ORDERED: Lidocaine 2% Viscous Solution 15 ML UD PO ONE (01:51)
[2023-05-08] MEDS ORDERED: Aluminum Hydroxide/Magnesium Hydroxide/Simethicone Susp 30 ML Cup PO ONE (01:51)
[2023-05-08 02:14] LABS: APPEARANCE,URINE CLEAR (CLEAR); BILIRUBIN,URINE NEGATIVE (NEGATIVE); COLOR,URINE YELLOW (YELLOW); GLUCOSE,URINE NEGATIVE (NEGATIVE); KETONES,URINE NEGATIVE (NEGATIVE); LEUKOCYTE ESTERASE,URINE NEGATIVE (NEGATIVE); NITRITE,URINE NEGATIVE (NEGATIVE); OCCULT BLOOD,URINE NEGATIVE (NEGATIVE); PH,URINE 5.5 (5.0-9.0); PROTEIN,URINE NEGATIVE (NEGATIVE); UROBILINOGEN,URINE 0.2 mg/dL (0.2-1.0)
[2023-05-08 02:17] LABS: AMPHETAMINES,URINE NEGATIVE (NEGATIVE); BARBITURATES,URINE NEGATIVE (NEGATIVE); BENZODIAZEPINE,URINE NEGATIVE (NEGATIVE); MDMA (ECSTASY), URINE NEGATIVE (NEGATIVE); METHADONE,URINE NEGATIVE (NEGATIVE); METHAMPHETAMINES,URINE NEGATIVE (NEGATIVE); OPIATES,URINE NEGATIVE (NEGATIVE); OXYCODONE,URINE NEGATIVE (NEGATIVE); PHENCYCLIDINE,URINE NEGATIVE (NEGATIVE); TCA,URINE NEGATIVE (NEGATIVE)
[2023-05-08] MEDS ORDERED: Acetaminophen 500 MG Tab PO ONE (05:02)
[2023-05-08] MEDS ORDERED: Albuterol 0.083% 2.5 MG/3 ML Neb Soln NEB ONE (05:02)
[2023-05-08 05:15] VITALS: BP 140/116; PULSE 61
[2023-05-08] MEDS ORDERED: Diazepam 5 MG Tab PO ONE (06:05)
[2023-05-08] MEDS ORDERED: Take Home: Acetaminophen/oxyCODONE 325-5 MG, 5 Tab Pack PO ONE (06:07)
== END 2023-05-08 06:32 | disposition home or self-care (01) ==
LOC: DL.ED 01:23
DX: I26.94 Multiple subsegmental thrombotic pulmonary emboli without acute cor pulmonale (principal); E66.9 Obesity, unspecified; Z88.5 Allergy status to narcotic agent; Z88.8 Allergy status to other drugs, medicaments and biological substances; Z79.899 Other long term (current) drug therapy; Z68.43 Body mass index [BMI] 50.0-59.9, adult
CPT/HCPCS: 80305-QW; 81003; 93005; 93010; 94640; 99284; 99285; A9270-GY; J7613-GY

== ENCOUNTER 2023-07-10 23:51 | Emergency (ER) | payer SELFPAY ==
[2023-07-11 00:20] VITALS: BP 146/90; PULSE 83
[2023-07-11] MEDS ORDERED: Iopamidol 755 Mg/ML 100 ML Bottle IV ONE ×2 (00:23→01:49)
[2023-07-11] MEDS: Sodium Chloride 0.9% 10 ML Syringe FLUSH PRN (00:33)
[2023-07-11 00:38] LABS: BASOPHILS PERCENT AUTO 0.4 % (0.0-1.0); EOSINOPHILS PERCENT AUTO 3.9 % (1.0-3.0); HEMATOCRIT 42.6 % (37.0-47.0); HEMOGLOBIN 13.7 g/dL (12.0-16.0); LYMPHOCYTES PERCENT AUTO 20.5 % (20.5-50.1); MEAN CORPUSCULAR HEMOGLOBIN 28.6 pg (27.0-34.0); MEAN CORPUSCULAR HGB CONC 32.2 g/dL (33.0-35.0); MEAN CORPUSCULAR VOLUME 88.9 fL (80-100); MONOCYTES PERCENT AUTO 7.8 % (2-8); NEUTROPHILS PERCENT AUTO 67.4 % (42.2-75.2); PLATELET COUNT,PLT 362 10^3/uL (150-450); RED BLOOD CELL COUNT 4.79 10^6/uL (4.2-5.4); WHITE BLOOD CELL COUNT,WBC 7.7 10^3/uL (5.0-10.0)
[2023-07-11 00:52] LABS: ALBUMIN 3.3 g/dL (3.4-5.0); BILIRUBIN TOTAL 0.2 mg/dL (0.2-1.0); BUN/CREATININE RATIO 18.9 (No establ ref range); CALCIUM 8.5 mg/dL (8.5-10.1); CREATININE 0.9 mg/dL (0.55-1.02); EST CRCL DRUG DOSING (CG) 79.25 mL/min
[2023-07-11 01:07] LABS: A/G RATIO 0.89
[2023-07-11] MEDS: Diazepam 2 MG Tab PO ONE (02:06)
[2023-07-11] MEDS: Iopamidol 755 Mg/ML 100 ML Bottle IV ONE ×2 (02:25→02:27)
[2023-07-11] MEDS: Acetaminophen 325 MG Tab PO ONE (03:34)
[2023-07-11] MEDS: Acetaminophen/HYDROcodone 325-10 MG Tab PO ONE ×2 (03:34→05:40)
[2023-07-11] MEDS: Take Home: Acetaminophen/HYDROcodone 325-5 MG, 5 Tab Pack PO ONE (05:40)
== END 2023-07-11 05:47 | disposition home or self-care (01) ==
LOC: DL.ED 23:51
DX: R10.10 Upper abdominal pain, unspecified (principal); R07.89 Other chest pain; E03.9 Hypothyroidism, unspecified; F17.210 Nicotine dependence, cigarettes, uncomplicated; Z88.5 Allergy status to narcotic agent; Z88.6 Allergy status to analgesic agent; Z88.8 Allergy status to other drugs, medicaments and biological substances; Z79.899 Other long term (current) drug therapy
CPT/HCPCS: 36415; 71260; 74177; 80053; 85025; 85379; 96374; 99284; 99285; A9270; J3360; Q9967; J3490

== ENCOUNTER 2023-07-21 11:04 | Emergency (ER) | payer SELFPAY ==
[2023-07-21 11:13] VITALS: BP 155/71; PULSE 72
== END 2023-07-21 11:14 ==
LOC: DL.ED 11:04
DX: Z02.89 Encounter for other administrative examinations (principal); Z88.5 Allergy status to narcotic agent; Z79.899 Other long term (current) drug therapy
CPT/HCPCS: 93010; 99283; 99284

== ENCOUNTER 2023-07-30 19:47 | Emergency (ER) | payer SELFPAY ==
[~2023-07-30 19:47] MED LIST changes: -Albuterol/Ipratropium 3.0-0.5 MG/3 ML Neb Soln NEB ONE; -Magnesium Sulfate/Water 2 GM in Premix Bag 1 BAG IV ONE; +Ondansetron 4 MG/2 ML SDV IVPUSH ONE; +Sodium Chloride 0.9% 10 ML Syringe FLUSH PRN
[2023-07-30] MEDS ORDERED: Iopamidol 612 MG/ML 100 ML Bottle IVPUSH ONE (19:54)
[2023-07-30] MEDS ORDERED: LORazepam 2 MG/ML SDV IVPUSH ONE (19:56)
[2023-07-30] MEDS ORDERED: LORazepam 2 MG/ML SDV ONE (19:57)
[2023-07-30] MEDS ORDERED: levETIRAcetam in NaCl (iso-os) 1,500 MG in Premix Bag 1 BAG IV ONE (20:00)
[2023-07-30 20:19] LABS: BASOPHILS PERCENT AUTO 0.4 % (0.0-1.0); EOSINOPHILS PERCENT AUTO 1.9 % (1.0-3.0); HEMATOCRIT 40.6 % (37.0-47.0); LYMPHOCYTES PERCENT AUTO 23.2 % (20.5-50.1); MEAN CORPUSCULAR HEMOGLOBIN 28.7 pg (27.0-34.0); MEAN CORPUSCULAR VOLUME 89.6 fL (80-100); MONOCYTES PERCENT AUTO 7.4 % (2-8); NEUTROPHILS PERCENT AUTO 67.1 % (42.2-75.2); PLATELET COUNT,PLT 412 10^3/uL (150-450); RED BLOOD CELL COUNT 4.53 10^6/uL (4.2-5.4); WHITE BLOOD CELL COUNT,WBC 8.9 10^3/uL (5.0-10.0)
[2023-07-30] MEDS ORDERED: Sodium Chloride 0.9% 1,000 ML IV ONE (20:34)
[2023-07-30 20:35] LABS: INR 0.9 (0.9-1.2); PROTHROMBIN TIME 9.5 SEC (9.0-12.0); PTT,PARTIAL THROMBOPLSTIN TIME 26.4 SEC (22.0-34.0)
[2023-07-30 20:39] LABS: ALANINE AMINOTRANSFERASE,ALT 15 U/L (14-59); ALBUMIN 3.4 g/dL (3.4-5.0); ALKALINE PHOSPHATASE 79 U/L (46-116); ANION GAP 11.1 mEq/L (7-13); ASPARTATE AMNIOTRANSFERASE,AST 10 U/L (15-37); BILIRUBIN TOTAL 0.3 mg/dL (0.2-1.0); BLOOD UREA NITROGEN,BUN 10 mg/dL (7-18); BUN/CREATININE RATIO 11.6 (No establ ref range); CALCIUM 8.7 mg/dL (8.5-10.1); CARBON DIOXIDE,CO2 28 mmol/L (21-32); CHLORIDE,CL 104 mmol/L (98-107); CREATINE KINASE,CK 48 U/L (16-191); CREATININE 0.86 mg/dL (0.55-1.02); GLUCOSE RANDOM 94 mg/dL (70-99); MAGNESIUM 1.9 mg/dL (1.8-2.4); POTASSIUM,K 4.1 mmol/L (3.5-5.1); PROTEIN TOTAL,TP 6.7 g/dL (6.4-8.2); SODIUM,NA 139 mmol/L (136-145)
[2023-07-30 20:40] LABS: C-REACTIVE PROTEIN < 0.50 ng/dL (<=0.50); ESTIMATED GFR 91 mL/min (>=60); ETHANOL BLOOD MEDICAL < 3 mg/dL (0)
[2023-07-30 20:42] LABS: LACTIC ACID 1.2 mmol/L (0.4-2.0)
[2023-07-30] MEDS ORDERED: Metoclopramide 10 MG/2 ML SDV IVPUSH ONE (20:55)
[2023-07-30] MEDS ORDERED: Acetaminophen 500 MG Tab PO ONE (21:20)
[2023-07-30] MEDS ORDERED: Iopamidol 755 Mg/ML 100 ML Bottle IVPUSH ONE (21:24)
[2023-07-30] MEDS: Iopamidol 612 MG/ML 100 ML Bottle IVPUSH ONE ×2 (21:35)
[2023-07-30 21:39] LABS: APPEARANCE,URINE CLEAR (CLEAR); BILIRUBIN,URINE NEGATIVE (NEGATIVE); COLOR,URINE YELLOW (YELLOW); GLUCOSE,URINE NEGATIVE (NEGATIVE); KETONES,URINE NEGATIVE (NEGATIVE); LEUKOCYTE ESTERASE,URINE NEGATIVE (NEGATIVE); NITRITE,URINE NEGATIVE (NEGATIVE); OCCULT BLOOD,URINE NEGATIVE (NEGATIVE); PH,URINE 7.5 (5.0-9.0); PROTEIN,URINE NEGATIVE (NEGATIVE); UROBILINOGEN,URINE 0.2 mg/dL (0.2-1.0)
[2023-07-30 21:45] LABS: AMPHETAMINES,URINE NEGATIVE (NEGATIVE); BARBITURATES,URINE NEGATIVE (NEGATIVE); BENZODIAZEPINE,URINE NEGATIVE (NEGATIVE); MDMA (ECSTASY), URINE NEGATIVE (NEGATIVE); METHADONE,URINE NEGATIVE (NEGATIVE); METHAMPHETAMINES,URINE NEGATIVE (NEGATIVE); OPIATES,URINE NEGATIVE (NEGATIVE); OXYCODONE,URINE NEGATIVE (NEGATIVE); PHENCYCLIDINE,URINE NEGATIVE (NEGATIVE); TCA,URINE NEGATIVE (NEGATIVE)
[2023-07-30 22:02] VITALS: BP 129/96; PULSE 76
[2023-07-30] MEDS ORDERED: Topiramate 100 MG Tab PO ONE (22:05)
== END 2023-07-30 22:26 | disposition home or self-care (01) ==
LOC: DL.ED 19:47
DX: G40.909 Epilepsy, unspecified, not intractable, without status epilepticus (principal); E03.9 Hypothyroidism, unspecified; Z88.6 Allergy status to analgesic agent; Z88.8 Allergy status to other drugs, medicaments and biological substances; Z79.899 Other long term (current) drug therapy; Z79.51 Long term (current) use of inhaled steroids; Z79.01 Long term (current) use of anticoagulants
CPT/HCPCS: 36415; 70450; 71260; 72125; 74177; 80053; 80305; 80307; 81003; 82550; 82947; 83605; 83735; 84484; 85025; 85610; 85730; 86140; 93005; 93010; 96365; 96375; 99284; Q9967

== ENCOUNTER 2023-08-17 09:55 | Emergency (ER) | payer OTHER ==
[2023-08-17] MEDS: Sodium Chloride 0.9% 10 ML Syringe FLUSH PRN (10:06)
[2023-08-17] MEDS: Sodium Chloride 0.9% 1,000 ML IV ONE (10:06)
[2023-08-17] MEDS: levETIRAcetam in NaCl (iso-os) 1,000 MG in Premix Bag 1 BAG IV ONE (10:10)
[2023-08-17] MEDS: Acetaminophen 325 MG Tab PO ONE (10:10)
[2023-08-17 10:23] LABS: BASOPHILS PERCENT AUTO 0.5 % (0.0-1.0); EOSINOPHILS PERCENT AUTO 3.7 % (1.0-3.0); HEMATOCRIT 40.9 % (37.0-47.0); HEMOGLOBIN 13.4 g/dL (12.0-16.0); MEAN CORPUSCULAR HEMOGLOBIN 28.9 pg (27.0-34.0); MEAN CORPUSCULAR HGB CONC 32.8 g/dL (33.0-35.0); MEAN CORPUSCULAR VOLUME 88.1 fL (80-100); MONOCYTES PERCENT AUTO 7.3 % (2-8); NEUTROPHILS PERCENT AUTO 67.5 % (42.2-75.2); PLATELET COUNT,PLT 363 10^3/uL (150-450); RED BLOOD CELL COUNT 4.64 10^6/uL (4.2-5.4); WHITE BLOOD CELL COUNT,WBC 6.1 10^3/uL (5.0-10.0)
[2023-08-17 10:43] LABS: ALBUMIN 3.3 g/dL (3.4-5.0); BILIRUBIN TOTAL 0.2 mg/dL (0.2-1.0); BUN/CREATININE RATIO 18.2 (No establ ref range); CALCIUM 8.4 mg/dL (8.5-10.1); CREATININE 0.88 mg/dL (0.55-1.02); EST CRCL DRUG DOSING (CG) 84.33 mL/min
[2023-08-17 10:49] LABS: A/G RATIO 0.89
[2023-08-17 11:29] VITALS: BP 98/63; PULSE 45
== END 2023-08-17 11:44 | disposition home or self-care (01) ==
LOC: DL.ED 09:55
DX: G40.909 Epilepsy, unspecified, not intractable, without status epilepticus (principal); E03.9 Hypothyroidism, unspecified; Z79.899 Other long term (current) drug therapy; Z88.6 Allergy status to analgesic agent; Z88.8 Allergy status to other drugs, medicaments and biological substances
CPT/HCPCS: 36415; 80053; 82947; 85025; 96361; 96374; 96375; 99283; 99284-25; A9270-GY; J1953; J3360; J3490; J7030

== ENCOUNTER 2023-10-18 20:50 | Emergency (ER) | payer OTHER ==
[2023-10-18 21:30] VITALS: BP 148/89; PULSE 66
[2023-10-18 21:46] LABS: BASOPHILS PERCENT AUTO 0.6 % (0.0-1.0); EOSINOPHILS PERCENT AUTO 4.2 % (1.0-3.0); HEMOGLOBIN 12.8 g/dL (12.0-16.0); LYMPHOCYTES PERCENT AUTO 24.8 % (20.5-50.1); MEAN CORPUSCULAR HEMOGLOBIN 28.5 pg (27.0-34.0); MEAN CORPUSCULAR VOLUME 89.1 fL (80-100); MONOCYTES PERCENT AUTO 7.9 % (2-8); NEUTROPHILS PERCENT AUTO 62.5 % (42.2-75.2); PLATELET COUNT,PLT 245 10^3/uL (150-450); RED BLOOD CELL COUNT 4.49 10^6/uL (4.2-5.4); WHITE BLOOD CELL COUNT,WBC 7.9 10^3/uL (5.0-10.0)
[2023-10-18 21:48] LABS: APPEARANCE,URINE SLIGHTLY CLOUDY (CLEAR); BILIRUBIN,URINE NEGATIVE (NEGATIVE); COLOR,URINE YELLOW (YELLOW); GLUCOSE,URINE NEGATIVE (NEGATIVE); KETONES,URINE NEGATIVE (NEGATIVE); LEUKOCYTE ESTERASE,URINE LARGE (NEGATIVE); NITRITE,URINE NEGATIVE (NEGATIVE); OCCULT BLOOD,URINE MODERATE (NEGATIVE); PROTEIN,URINE NEGATIVE (NEGATIVE); UROBILINOGEN,URINE 0.2 mg/dL (0.2-1.0)
[2023-10-18] MEDS: Lactated Ringers 1,000 ML IV ONE (21:52)
[2023-10-18 22:03] LABS: AMORPHOUS SEDIMENT,URINE FEW /HPF (NOT SEEN); BACTERIA,URINE MANY /HPF (0-FEW/HPF); EPITHELIAL CELLS,URINE MANY /HPF (NOT SEEN); MUCUS,URINE FEW /LPF (NOT SEEN); RBC,URINE 0-5 /HPF (0-5); WBC,URINE 30-40 /HPF (0-5/HPF)
[2023-10-18 22:04] LABS: TRICHOMONAS,URINE PRESENT /HPF (NOT SEEN)
[2023-10-18 22:07] LABS: A/G RATIO 0.7; ALBUMIN 3.1 g/dL (3.4-5.0); ANION GAP 11.9 mEq/L (7-13); BILIRUBIN TOTAL 0.3 mg/dL (0.2-1.0); BUN/CREATININE RATIO 27.9 (No establ ref range); CALCIUM 8.6 mg/dL (8.5-10.1); CREATININE 0.68 mg/dL (0.55-1.02); EST CRCL DRUG DOSING (CG) 103.91 mL/min; POTASSIUM,K 4.9 mmol/L (3.5-5.1); PROTEIN TOTAL,TP 7.5 g/dL (6.4-8.2)
[2023-10-18] MEDS: Orphenadrine 60 MG/2 ML Inj IM ONE (22:08)
[2023-10-18] MEDS: Morphine 2 MG/ML SYRINGE IVPUSH ONE (23:12)
[2023-10-18] MEDS: Sodium Chloride 0.9% 10 ML Syringe FLUSH PRN (23:36)
[2023-10-18] MEDS: cefTRIAXone 1 GM Vial IVPUSH ONE (23:36)
[2023-10-18] MEDS: metroNIDAZOLE 250 MG Tab PO ONE (23:37)
[2023-10-19] MEDS: HYDROmorphone 1 MG/ML Syringe IVPUSH ONE (01:07)
== END 2023-10-19 01:26 | disposition home or self-care (01) ==
LOC: DL.ED 20:50
DX: N73.0 Acute parametritis and pelvic cellulitis (principal); A59.9 Trichomoniasis, unspecified; M54.50 Low back pain, unspecified; M54.6 Pain in thoracic spine; E03.9 Hypothyroidism, unspecified; Z79.890 Hormone replacement therapy; Z79.01 Long term (current) use of anticoagulants; Z88.8 Allergy status to other drugs, medicaments and biological substances
CPT/HCPCS: 36415; 74176; 80053; 81001; 81025; 85025; 85379; 87086; 96372; 96374; 96375; 99284; 99284-25; A9270-GY; J0696; J1170; J2270; J2360; J3490; J7120

== ENCOUNTER 2023-11-21 19:06 | Emergency (ER) | payer OTHER ==
[2023-11-21] MEDS: Proparacaine 0.5% Ophth Soln 15 ML Bottle EYEBOTH ONE (19:26)
[2023-11-21] MEDS: Acetaminophen 500 MG Tab PO ONE (19:28)
[2023-11-21] MEDS: Fluorescein 1 MG Ophth Strip EYEBOTH ONE (19:46)
[2023-11-21] MEDS ORDERED: Gentamicin 0.3% Ophth Soln 5 ML Bottle EYERT ONE (19:51)
[2023-11-21 20:03] VITALS: BP 128/74; PULSE 77
== END 2023-11-21 19:58 | disposition home or self-care (01) ==
LOC: DL.ED 19:06
DX: H18.821 Corneal disorder due to contact lens, right eye (principal); E03.9 Hypothyroidism, unspecified; Z79.899 Other long term (current) drug therapy; Z88.8 Allergy status to other drugs, medicaments and biological substances
CPT/HCPCS: 99283; A9270; J3490

== ENCOUNTER 2023-12-01 09:35 | Emergency (ER) | payer OTHER ==
[2023-12-01 10:08] VITALS: BP 134/83; PULSE 105
[2023-12-01] MEDS: methylPREDNISolone Sodium Succinate 125 MG/2 ML SDV IM ONE (10:52)
[2023-12-01] MEDS: hydrOXYzine HCl 25 MG Tab PO ONE (10:52)
[2023-12-01] MEDS: Take Home: hydrOXYzine HCl 25 MG Tab, 4 Tab Pack PO ONE (10:55)
[2023-12-01] MEDS: Take Home: predniSONE 20 MG, 4 Tab Pack PO ONE (10:55)
== END 2023-12-01 11:03 | disposition home or self-care (01) ==
LOC: DL.ED 09:35
DX: L23.7 Allergic contact dermatitis due to plants, except food (principal); E03.9 Hypothyroidism, unspecified; E66.9 Obesity, unspecified; F17.210 Nicotine dependence, cigarettes, uncomplicated; Z79.890 Hormone replacement therapy; Z88.6 Allergy status to analgesic agent; Z68.43 Body mass index [BMI] 50.0-59.9, adult; Z88.8 Allergy status to other drugs, medicaments and biological substances
CPT/HCPCS: 96372; 99282; A9270; J2919

== ENCOUNTER 2023-12-09 07:59 | Emergency (ER) | payer OTHER ==
[2023-12-09 08:21] LABS: BASOPHILS PERCENT AUTO 0.3 % (0.0-1.0); EOSINOPHILS PERCENT AUTO 0.3 % (1.0-3.0); HEMATOCRIT 45.5 % (37.0-47.0); HEMOGLOBIN 14.5 g/dL (12.0-16.0); LYMPHOCYTES PERCENT AUTO 7.5 % (20.5-50.1); MEAN CORPUSCULAR HEMOGLOBIN 27.9 pg (27.0-34.0); MEAN CORPUSCULAR HGB CONC 31.9 g/dL (33.0-35.0); MEAN CORPUSCULAR VOLUME 87.7 fL (80-100); MONOCYTES PERCENT AUTO 2.3 % (2-8); NEUTROPHILS PERCENT AUTO 89.6 % (42.2-75.2); PLATELET COUNT,PLT 424 10^3/uL (150-450); RED BLOOD CELL COUNT 5.19 10^6/uL (4.2-5.4); WHITE BLOOD CELL COUNT,WBC 11.9 10^3/uL (5.0-10.0)
[2023-12-09] MEDS: LORazepam 2 MG/ML SDV SUBCUT ONE (08:32)
[2023-12-09] MEDS: LORazepam 2 MG/ML SDV IVPUSH ONE ×3 (08:34→10:19)
[2023-12-09] MEDS: LORazepam 2 MG/ML SDV ONE ×3 (08:43→09:56)
[2023-12-09] MEDS: Sodium Chloride 0.9% 1,000 ML IV ONE (08:45)
[2023-12-09 08:47] LABS: HCG QUALITATIVE,SERUM NEGATIVE (NEGATIVE)
[2023-12-09 08:51] LABS: A/G RATIO 0.8; ALANINE AMINOTRANSFERASE,ALT 16 U/L (14-59); ALBUMIN 3.5 g/dL (3.4-5.0); ALKALINE PHOSPHATASE 85 U/L (46-116); ANION GAP 12.8 mEq/L (7-13); ASPARTATE AMNIOTRANSFERASE,AST 13 U/L (15-37); BILIRUBIN TOTAL 0.4 mg/dL (0.2-1.0); BLOOD UREA NITROGEN,BUN 14 mg/dL (7-18); BUN/CREATININE RATIO 14.9 (No establ ref range); CALCIUM 9.2 mg/dL (8.5-10.1); CARBON DIOXIDE,CO2 25 mmol/L (21-32); CHLORIDE,CL 103 mmol/L (98-107); CREATININE 0.94 mg/dL (0.55-1.02); GLUCOSE RANDOM 146 mg/dL (70-99); MAGNESIUM 2.2 mg/dL (1.8-2.4); POTASSIUM,K 4.8 mmol/L (3.5-5.1); PROTEIN TOTAL,TP 7.7 g/dL (6.4-8.2); SODIUM,NA 136 mmol/L (136-145); TSH ULTRASENSITIVE 2.37 uIU/mL (0.36-3.74)
[2023-12-09] MEDS: levETIRAcetam in NaCl (iso-os) 1,500 MG in Premix Bag 1 BAG IV ONE (08:56)
[2023-12-09 08:58] VITALS: BP 109/95; PULSE 80
[2023-12-09 08:58] LABS: ESTIMATED GFR 81 mL/min (>=60); ETHANOL BLOOD MEDICAL < 3 mg/dL (0)
[2023-12-09] MEDS: LORazepam 2 MG/ML SDV IM ONE (08:58)
[2023-12-09] MEDS: Magnesium Sulfate/Water 2 GM in Premix Bag 1 BAG IV ONE (09:52)
[2023-12-09 09:55] LABS: BILIRUBIN,URINE NEGATIVE (NEGATIVE); COLOR,URINE YELLOW (YELLOW); GLUCOSE,URINE NEGATIVE (NEGATIVE); KETONES,URINE NEGATIVE (NEGATIVE); LEUKOCYTE ESTERASE,URINE NEGATIVE (NEGATIVE); NITRITE,URINE NEGATIVE (NEGATIVE); OCCULT BLOOD,URINE MODERATE (NEGATIVE); PROTEIN,URINE NEGATIVE (NEGATIVE); UROBILINOGEN,URINE 0.2 mg/dL (0.2-1.0)
[2023-12-09 09:57] LABS: APPEARANCE,URINE CLEAR (CLEAR)
[2023-12-09] MEDS: Thiamine 100 MG in Sodium Chloride 0.9% 100 ML IV ONE (09:57)
[2023-12-09 09:59] LABS: AMPHETAMINES,URINE NEGATIVE (NEGATIVE); BARBITURATES,URINE NEGATIVE (NEGATIVE); BENZODIAZEPINE,URINE NEGATIVE (NEGATIVE); MDMA (ECSTASY), URINE NEGATIVE (NEGATIVE); METHADONE,URINE NEGATIVE (NEGATIVE); METHAMPHETAMINES,URINE POSITIVE (NEGATIVE); OPIATES,URINE NEGATIVE (NEGATIVE); OXYCODONE,URINE NEGATIVE (NEGATIVE); PHENCYCLIDINE,URINE NEGATIVE (NEGATIVE); TCA,URINE NEGATIVE (NEGATIVE)
[2023-12-09 10:04] LABS: RBC,URINE 40-50 /HPF (0-5); WBC,URINE 0-5 /HPF (0-5/HPF)
[2023-12-09 10:05] LABS: BACTERIA,URINE RARE /HPF (0-FEW/HPF); EPITHELIAL CELLS,URINE MODERATE /HPF (NOT SEEN)
[2023-12-09] MEDS: PHENobarbital Sodium 65 MG/ML SDV IVPUSH ONE ×2 (10:18→10:21)
== END 2023-12-09 10:30 ==
LOC: DL.ED 07:59
DX: R00.2 Palpitations (principal); R07.89 Other chest pain; G40.909 Epilepsy, unspecified, not intractable, without status epilepticus; E86.9 Volume depletion, unspecified; F17.210 Nicotine dependence, cigarettes, uncomplicated; E03.9 Hypothyroidism, unspecified; E66.9 Obesity, unspecified; Z68.43 Body mass index [BMI] 50.0-59.9, adult; Z88.8 Allergy status to other drugs, medicaments and biological substances
CPT/HCPCS: 36415; 70450; 71046; 80053; 80305; 80307; 81001; 82947; 83735; 84443; 84484; 84703; 85025; 93005; 96365; 96367; 96372; 96375; 96376; 99285; J1953; J2060; J2560; J3411; J3475; J3490; J7030

== ENCOUNTER 2023-12-16 13:25 | Emergency (ER) | payer OTHER ==
[2023-12-16 13:24] VITALS: BP 142/93; PULSE 78
[2023-12-16] MEDS: LORazepam 2 MG/ML SDV IVPUSH ONE ×3 (13:39→16:02)
[2023-12-16] MEDS: levETIRAcetam in NaCl (iso-os) 1,500 MG in Premix Bag 1 BAG IV ONE (13:46)
[2023-12-16] MEDS: Sodium Chloride 0.9% 1,000 ML IV ONE (13:46)
[2023-12-16 14:26] LABS: BASOPHILS PERCENT AUTO 0.7 % (0.0-1.0); EOSINOPHILS PERCENT AUTO 4.5 % (1.0-3.0); HEMATOCRIT 41.5 % (37.0-47.0); HEMOGLOBIN 13.2 g/dL (12.0-16.0); LYMPHOCYTES PERCENT AUTO 19.6 % (20.5-50.1); MEAN CORPUSCULAR HGB CONC 31.8 g/dL (33.0-35.0); MEAN CORPUSCULAR VOLUME 87.9 fL (80-100); MONOCYTES PERCENT AUTO 8.2 % (2-8); PLATELET COUNT,PLT 322 10^3/uL (150-450); RED BLOOD CELL COUNT 4.72 10^6/uL (4.2-5.4); WHITE BLOOD CELL COUNT,WBC 7.6 10^3/uL (5.0-10.0)
[2023-12-16 14:47] LABS: PROTHROMBIN TIME 9.9 SEC (9.0-12.0)
[2023-12-16 14:48] LABS: HCG QUALITATIVE,SERUM NEGATIVE (NEGATIVE)
[2023-12-16 14:49] LABS: ALANINE AMINOTRANSFERASE,ALT 17 U/L (14-59); ALBUMIN 3.3 g/dL (3.4-5.0); ALKALINE PHOSPHATASE 90 U/L (46-116); ANION GAP 14.1 mEq/L (7-13); ASPARTATE AMNIOTRANSFERASE,AST 14 U/L (15-37); BILIRUBIN TOTAL 0.3 mg/dL (0.2-1.0); BLOOD UREA NITROGEN,BUN 14 mg/dL (7-18); BUN/CREATININE RATIO 17.1 (No establ ref range); CALCIUM 8.7 mg/dL (8.5-10.1); CARBON DIOXIDE,CO2 25 mmol/L (21-32); CHLORIDE,CL 105 mmol/L (98-107); CREATININE 0.82 mg/dL (0.55-1.02); GLUCOSE RANDOM 102 mg/dL (70-99); MAGNESIUM 2.1 mg/dL (1.8-2.4); POTASSIUM,K 4.1 mmol/L (3.5-5.1); PROTEIN TOTAL,TP 7.4 g/dL (6.4-8.2); SODIUM,NA 140 mmol/L (136-145)
[2023-12-16 14:53] LABS: ESTIMATED GFR 96 mL/min (>=60); ETHANOL BLOOD MEDICAL < 3 mg/dL (0)
[2023-12-16] MEDS: PHENobarbital Sodium 65 MG/ML SDV IV ONE (16:02)
[2023-12-16 17:03] LABS: APPEARANCE,URINE SLIGHTLY CLOUDY (CLEAR); BILIRUBIN,URINE SMALL (NEGATIVE); COLOR,URINE AMBER (YELLOW); GLUCOSE,URINE NEGATIVE (NEGATIVE); KETONES,URINE NEGATIVE (NEGATIVE); LEUKOCYTE ESTERASE,URINE NEGATIVE (NEGATIVE); NITRITE,URINE NEGATIVE (NEGATIVE); OCCULT BLOOD,URINE NEGATIVE (NEGATIVE); PROTEIN,URINE 30 (NEGATIVE); UROBILINOGEN,URINE 0.2 mg/dL (0.2-1.0)
[2023-12-16 17:11] LABS: AMORPHOUS SEDIMENT,URINE MODERATE /HPF (NOT SEEN); BACTERIA,URINE MODERATE /HPF (0-FEW/HPF); EPITHELIAL CELLS,URINE FEW /HPF (NOT SEEN); MUCUS,URINE MANY /LPF (NOT SEEN); WBC,URINE 0-5 /HPF (0-5/HPF)
[2023-12-16 17:12] LABS: AMPHETAMINES,URINE POSITIVE (NEGATIVE); BARBITURATES,URINE POSITIVE (NEGATIVE); BENZODIAZEPINE,URINE POSITIVE (NEGATIVE); MDMA (ECSTASY), URINE NEGATIVE (NEGATIVE); METHADONE,URINE NEGATIVE (NEGATIVE); METHAMPHETAMINES,URINE POSITIVE (NEGATIVE); OPIATES,URINE NEGATIVE (NEGATIVE); OXYCODONE,URINE NEGATIVE (NEGATIVE); PHENCYCLIDINE,URINE NEGATIVE (NEGATIVE); TCA,URINE NEGATIVE (NEGATIVE)
== END 2023-12-16 16:10 ==
LOC: DL.ED 13:25
DX: G40.909 Epilepsy, unspecified, not intractable, without status epilepticus (principal); E03.9 Hypothyroidism, unspecified; E66.9 Obesity, unspecified; F17.210 Nicotine dependence, cigarettes, uncomplicated; Z88.8 Allergy status to other drugs, medicaments and biological substances
CPT/HCPCS: 36415; 70450; 71045; 72125; 80053; 80177; 80305; 80307; 81001; 82947; 83735; 84443; 84484; 84703; 85025; 85610; 96365; 96375; 96376; 99285; J1953; J2060; J2560; J7030

== ENCOUNTER 2023-12-23 19:45 | Emergency (ER) | payer OTHER ==
[2023-12-23 20:26] VITALS: BP 117/91; PULSE 64
== END 2023-12-23 20:03 ==
LOC: DL.ED 19:45
DX: Z76.5 Malingerer [conscious simulation] (principal); E03.9 Hypothyroidism, unspecified; Z88.6 Allergy status to analgesic agent; Z88.8 Allergy status to other drugs, medicaments and biological substances; Z88.5 Allergy status to narcotic agent; Z79.51 Long term (current) use of inhaled steroids; Z79.890 Hormone replacement therapy
CPT/HCPCS: 99283; 99284

== ENCOUNTER 2023-12-24 00:17 | Emergency (ER) | payer OTHER ==
[2023-12-24 00:53] VITALS: BP 135/82; PULSE 60
[2023-12-24 01:17] LABS: HEMATOCRIT 37.5 % (37.0-47.0); HEMOGLOBIN 11.8 g/dL (12.0-16.0); MEAN CORPUSCULAR HEMOGLOBIN 28.2 pg (27.0-34.0); MEAN CORPUSCULAR HGB CONC 31.5 g/dL (33.0-35.0); MEAN CORPUSCULAR VOLUME 89.5 fL (80-100); PLATELET COUNT,PLT 310 10^3/uL (150-450); RED BLOOD CELL COUNT 4.19 10^6/uL (4.2-5.4); WHITE BLOOD CELL COUNT,WBC 5.9 10^3/uL (5.0-10.0)
[2023-12-24 01:20] LABS: BASOPHILS PERCENT AUTO 0.5 % (0.0-1.0); EOSINOPHILS PERCENT AUTO 11.3 % (1.0-3.0); LYMPHOCYTES PERCENT AUTO 30.7 % (20.5-50.1); MONOCYTES PERCENT AUTO 10.5 % (2-8)
[2023-12-24] MEDS: Sodium Chloride 0.9% 10 ML Syringe FLUSH PRN (01:25)
[2023-12-24] MEDS: Sodium Chloride 0.9% 1,000 ML IV ONE (01:25)
[2023-12-24 01:36] LABS: ACETAMINOPHEN 3 ug/mL (10-30 (Therapeutic)); ALANINE AMINOTRANSFERASE,ALT 20 U/L (14-59); ALBUMIN 2.6 g/dL (3.4-5.0); ALKALINE PHOSPHATASE 121 U/L (46-116); ANION GAP 10.9 mEq/L (7-13); ASPARTATE AMNIOTRANSFERASE,AST 14 U/L (15-37); BLOOD UREA NITROGEN,BUN 11 mg/dL (7-18); BUN/CREATININE RATIO 13.4 (No establ ref range); CALCIUM 8.2 mg/dL (8.5-10.1); CARBON DIOXIDE,CO2 24 mmol/L (21-32); CHLORIDE,CL 106 mmol/L (98-107); CREATININE 0.82 mg/dL (0.55-1.02); GLUCOSE RANDOM 100 mg/dL (70-99); MAGNESIUM 1.9 mg/dL (1.8-2.4); PHOSPHORUS 3.2 mg/dL (2.6-4.7); POTASSIUM,K 3.9 mmol/L (3.5-5.1); SODIUM,NA 137 mmol/L (136-145)
[2023-12-24 01:50] LABS: A/G RATIO 0.76; ESTIMATED GFR 96 mL/min (>=60)
[2023-12-24 01:51] LABS: BILIRUBIN TOTAL 0.1 mg/dL (0.2-1.0); ETHANOL BLOOD MEDICAL < 3 mg/dL (0)
[2023-12-24 02:27] LABS: EOSINOPHILS PERCENT MAN 13 % (1-3); LYMPHOCYTES PERCENT MAN 31 % (20-50); MONOCYTES PERCENT MAN 6 % (2-8); SEG NEUTROPHILS PERCENT MAN 50 % (42-75)
[2023-12-24 02:42] LABS: APPEARANCE,URINE SLIGHTLY CLOUDY (CLEAR); BILIRUBIN,URINE NEGATIVE (NEGATIVE); COLOR,URINE YELLOW (YELLOW); GLUCOSE,URINE NEGATIVE (NEGATIVE); KETONES,URINE NEGATIVE (NEGATIVE); LEUKOCYTE ESTERASE,URINE NEGATIVE (NEGATIVE); NITRITE,URINE NEGATIVE (NEGATIVE); OCCULT BLOOD,URINE NEGATIVE (NEGATIVE); PH,URINE 7.5 (5.0-9.0); PROTEIN,URINE NEGATIVE (NEGATIVE); UROBILINOGEN,URINE 0.2 mg/dL (0.2-1.0)
[2023-12-24 02:44] LABS: AMPHETAMINES,URINE NEGATIVE (NEGATIVE); BARBITURATES,URINE POSITIVE (NEGATIVE); BENZODIAZEPINE,URINE NEGATIVE (NEGATIVE); MDMA (ECSTASY), URINE NEGATIVE (NEGATIVE); METHADONE,URINE NEGATIVE (NEGATIVE); METHAMPHETAMINES,URINE NEGATIVE (NEGATIVE); OPIATES,URINE NEGATIVE (NEGATIVE); OXYCODONE,URINE NEGATIVE (NEGATIVE); PHENCYCLIDINE,URINE NEGATIVE (NEGATIVE); TCA,URINE NEGATIVE (NEGATIVE)
== END 2023-12-24 03:15 | disposition home or self-care (01) ==
LOC: DL.ED 00:17
DX: R56.9 Unspecified convulsions (principal); E66.9 Obesity, unspecified; E03.9 Hypothyroidism, unspecified; Z88.8 Allergy status to other drugs, medicaments and biological substances; Z79.890 Hormone replacement therapy; Z79.899 Other long term (current) drug therapy; Z68.42 Body mass index [BMI] 45.0-49.9, adult
CPT/HCPCS: 36415; 70450; 80053; 80143; 80179; 80305; 80307; 81003; 81025; 82140; 83735; 84100; 85025; 99285; J7030; 99284; J3490

== ENCOUNTER 2023-12-24 16:32 | Emergency (ER) | payer OTHER ==
[2023-12-24] MEDS ORDERED: Sodium Chloride 0.9% 10 ML Syringe FLUSH PRN (16:50)
[2023-12-24 16:51] VITALS: BP 110/68; PULSE 58
[2023-12-24 17:28] LABS: BASOPHILS PERCENT AUTO 0.5 % (0.0-1.0); EOSINOPHILS PERCENT AUTO 9.9 % (1.0-3.0); HEMATOCRIT 38.2 % (37.0-47.0); HEMOGLOBIN 12.1 g/dL (12.0-16.0); LYMPHOCYTES PERCENT AUTO 19.8 % (20.5-50.1); MEAN CORPUSCULAR HEMOGLOBIN 28.1 pg (27.0-34.0); MEAN CORPUSCULAR HGB CONC 31.7 g/dL (33.0-35.0); MEAN CORPUSCULAR VOLUME 88.6 fL (80-100); MONOCYTES PERCENT AUTO 6.6 % (2-8); NEUTROPHILS PERCENT AUTO 63.2 % (42.2-75.2); PLATELET COUNT,PLT 331 10^3/uL (150-450); RED BLOOD CELL COUNT 4.31 10^6/uL (4.2-5.4)
[2023-12-24 17:53] LABS: ALBUMIN 2.8 g/dL (3.4-5.0); ANION GAP 13.8 mEq/L (7-13); BILIRUBIN TOTAL 0.1 mg/dL (0.2-1.0); BUN/CREATININE RATIO 8.3 (No establ ref range); CALCIUM 8.5 mg/dL (8.5-10.1); CREATININE 0.72 mg/dL (0.55-1.02); EST CRCL DRUG DOSING (CG) 110.01 mL/min; POTASSIUM,K 3.8 mmol/L (3.5-5.1); PROTEIN TOTAL,TP 6.2 g/dL (6.4-8.2)
[2023-12-24 18:03] LABS: A/G RATIO 0.82
[2023-12-24] MEDS: Acetaminophen 500 MG Tab PO ONE (19:11)
[2023-12-24 20:08] LABS: BASOPHILS PERCENT AUTO 0.5 % (0.0-1.0); EOSINOPHILS PERCENT AUTO 10.4 % (1.0-3.0); HEMATOCRIT 37.1 % (37.0-47.0); HEMOGLOBIN 11.8 g/dL (12.0-16.0); MEAN CORPUSCULAR HEMOGLOBIN 28.1 pg (27.0-34.0); MEAN CORPUSCULAR HGB CONC 31.8 g/dL (33.0-35.0); MEAN CORPUSCULAR VOLUME 88.3 fL (80-100); MONOCYTES PERCENT AUTO 7.7 % (2-8); NEUTROPHILS PERCENT AUTO 59.4 % (42.2-75.2); PLATELET COUNT,PLT 311 10^3/uL (150-450); WHITE BLOOD CELL COUNT,WBC 6.3 10^3/uL (5.0-10.0)
[2023-12-24] MEDS: Acetaminophen 325 MG Tab PO ONE (20:12)
[2023-12-24 20:24] LABS: ANION GAP 14.8 mEq/L (7-13); CALCIUM 8.2 mg/dL (8.5-10.1); CREATININE 0.68 mg/dL (0.55-1.02); EST CRCL DRUG DOSING (CG) 116.48 mL/min; MAGNESIUM 1.9 mg/dL (1.8-2.4); POTASSIUM,K 3.8 mmol/L (3.5-5.1)
[2023-12-24 20:42] LABS: APPEARANCE,URINE CLEAR (CLEAR); BILIRUBIN,URINE NEGATIVE (NEGATIVE); COLOR,URINE YELLOW (YELLOW); GLUCOSE,URINE NEGATIVE (NEGATIVE); KETONES,URINE NEGATIVE (NEGATIVE); LEUKOCYTE ESTERASE,URINE NEGATIVE (NEGATIVE); NITRITE,URINE NEGATIVE (NEGATIVE); OCCULT BLOOD,URINE TRACE-INTACT (NEGATIVE); PROTEIN,URINE NEGATIVE (NEGATIVE); UROBILINOGEN,URINE 0.2 mg/dL (0.2-1.0)
[2023-12-24 20:45] LABS: INR 0.9 (0.9-1.2); PROTHROMBIN TIME 9.2 SEC (9.0-12.0); PTT,PARTIAL THROMBOPLSTIN TIME 25.4 SEC (22.0-34.0)
[2023-12-24 20:45] LABS: AMPHETAMINES,URINE NEGATIVE (NEGATIVE); BARBITURATES,URINE POSITIVE (NEGATIVE); BENZODIAZEPINE,URINE NEGATIVE (NEGATIVE); MDMA (ECSTASY), URINE NEGATIVE (NEGATIVE); METHADONE,URINE NEGATIVE (NEGATIVE); METHAMPHETAMINES,URINE NEGATIVE (NEGATIVE); OPIATES,URINE NEGATIVE (NEGATIVE); OXYCODONE,URINE NEGATIVE (NEGATIVE); PHENCYCLIDINE,URINE NEGATIVE (NEGATIVE); TCA,URINE NEGATIVE (NEGATIVE)
[2023-12-24] MEDS: Sodium Chloride 0.9% 10 ML Syringe FLUSH PRN (21:00)
[2023-12-24 21:19] LABS: BACTERIA,URINE FEW /HPF (0-FEW/HPF); EPITHELIAL CELLS,URINE FEW /HPF (NOT SEEN); WBC,URINE 0-5 /HPF (0-5/HPF)
[2023-12-28 19:43] LABS: KEPPRA 6 ug/mL (10-40)
== END 2023-12-25 13:30 | disposition left against medical advice (07) ==
LOC: DL.ED 16:32
DX: R41.82 Altered mental status, unspecified (principal); E03.9 Hypothyroidism, unspecified; F17.210 Nicotine dependence, cigarettes, uncomplicated; Z88.8 Allergy status to other drugs, medicaments and biological substances; Z88.6 Allergy status to analgesic agent; Z79.51 Long term (current) use of inhaled steroids; Z79.890 Hormone replacement therapy
CPT/HCPCS: 36415; 80048; 80053; 80177; 80305; 81001; 81025; 82947; 83735; 85025; 85610; 85730; 99284; 99285; A9270; J3490

== ENCOUNTER 2024-01-02 12:04 | Emergency (ER) | payer OTHER ==
[2024-01-02 13:11] LABS: HEMATOCRIT 38.3 % (37.0-47.0); HEMOGLOBIN 12.4 g/dL (12.0-16.0); MEAN CORPUSCULAR HEMOGLOBIN 28.1 pg (27.0-34.0); MEAN CORPUSCULAR HGB CONC 32.4 g/dL (33.0-35.0); MEAN CORPUSCULAR VOLUME 86.8 fL (80-100); PLATELET COUNT,PLT 272 10^3/uL (150-450); RED BLOOD CELL COUNT 4.41 10^6/uL (4.2-5.4); WHITE BLOOD CELL COUNT,WBC 7.9 10^3/uL (5.0-10.0)
[2024-01-02 13:12] LABS: BASOPHILS PERCENT AUTO 0.5 % (0.0-1.0); EOSINOPHILS PERCENT AUTO 3.4 % (1.0-3.0); LYMPHOCYTES PERCENT AUTO 20.6 % (20.5-50.1); MONOCYTES PERCENT AUTO 6.6 % (2-8); NEUTROPHILS PERCENT AUTO 68.9 % (42.2-75.2)
[2024-01-02] MEDS ORDERED: Sodium Chloride 0.9% 10 ML Syringe FLUSH PRN (13:12)
[2024-01-02] MEDS: Sodium Chloride 0.9% 1,000 ML IV ONE (13:16)
[2024-01-02 13:21] LABS: ALANINE AMINOTRANSFERASE,ALT 17 U/L (14-59); ALBUMIN 3.1 g/dL (3.4-5.0); ALKALINE PHOSPHATASE 97 U/L (46-116); AMYLASE 20 U/L (25-115); ASPARTATE AMNIOTRANSFERASE,AST 12 U/L (15-37); BILIRUBIN TOTAL 0.1 mg/dL (0.2-1.0); BLOOD UREA NITROGEN,BUN 7 mg/dL (7-18); BUN/CREATININE RATIO 9.6 (No establ ref range); CALCIUM 8.9 mg/dL (8.5-10.1); CARBON DIOXIDE,CO2 22 mmol/L (21-32); CHLORIDE,CL 108 mmol/L (98-107); CREATININE 0.73 mg/dL (0.55-1.02); GLUCOSE RANDOM 95 mg/dL (70-99); LIPASE 30 U/L (16-77); MAGNESIUM 1.8 mg/dL (1.8-2.4); PROTEIN TOTAL,TP 6.3 g/dL (6.4-8.2); SODIUM,NA 139 mmol/L (136-145)
[2024-01-02 13:22] LABS: A/G RATIO 0.97; ESTIMATED GFR 110 mL/min (>=60)
[2024-01-02] MEDS: Metoclopramide 10 MG/2 ML SDV IVPUSH ONE (13:55)
[2024-01-02 14:08] LABS: BAND PERCENT MAN 1 %; EOSINOPHILS PERCENT MAN 3 % (1-3); LYMPHOCYTES PERCENT MAN 20 % (20-50); MONOCYTES PERCENT MAN 7 % (2-8); SEG NEUTROPHILS PERCENT MAN 69 % (42-75)
[2024-01-02 14:55] VITALS: BP 105/61; PULSE 50
== END 2024-01-02 15:17 | disposition home or self-care (01) ==
LOC: DL.ED 12:04
DX: M94.0 Chondrocostal junction syndrome [Tietze] (principal); R10.13 Epigastric pain; E66.9 Obesity, unspecified; E03.9 Hypothyroidism, unspecified; Z88.8 Allergy status to other drugs, medicaments and biological substances; Z79.890 Hormone replacement therapy; Z79.899 Other long term (current) drug therapy
CPT/HCPCS: 36415; 80053; 81025; 82150; 83690; 83735; 84484; 85025; 93005; 93010; 96361; 96374; 99284; 99285-25; J2765; J7030

== ENCOUNTER 2024-01-16 05:04 | Emergency (ER) | payer OTHER ==
[2024-01-16 05:36] LABS: BASOPHILS PERCENT AUTO 0.5 % (0.0-1.0); EOSINOPHILS PERCENT AUTO 2.3 % (1.0-3.0); HEMATOCRIT 37.5 % (37.0-47.0); HEMOGLOBIN 12.2 g/dL (12.0-16.0); LYMPHOCYTES PERCENT AUTO 22.4 % (20.5-50.1); MEAN CORPUSCULAR HEMOGLOBIN 27.9 pg (27.0-34.0); MEAN CORPUSCULAR HGB CONC 32.5 g/dL (33.0-35.0); MEAN CORPUSCULAR VOLUME 85.8 fL (80-100); MONOCYTES PERCENT AUTO 12.1 % (2-8); NEUTROPHILS PERCENT AUTO 62.7 % (42.2-75.2); PLATELET COUNT,PLT 332 10^3/uL (150-450); RED BLOOD CELL COUNT 4.37 10^6/uL (4.2-5.4); WHITE BLOOD CELL COUNT,WBC 10.8 10^3/uL (5.0-10.0)
[2024-01-16 05:54] LABS: A/G RATIO 1.1; ALANINE AMINOTRANSFERASE,ALT 20 U/L (14-59); ALBUMIN 3.8 g/dL (3.4-5.0); ALKALINE PHOSPHATASE 95 U/L (46-116); ANION GAP 17.3 mEq/L (7-13); ASPARTATE AMNIOTRANSFERASE,AST 27 U/L (15-37); BILIRUBIN TOTAL 0.6 mg/dL (0.2-1.0); BLOOD UREA NITROGEN,BUN 22 mg/dL (7-18); CALCIUM 9.1 mg/dL (8.5-10.1); CARBON DIOXIDE,CO2 21 mmol/L (21-32); CHLORIDE,CL 105 mmol/L (98-107); CREATININE 1.47 mg/dL (0.55-1.02); EST CRCL DRUG DOSING (CG) 53.88 mL/min; GLUCOSE RANDOM 94 mg/dL (70-99); MAGNESIUM 1.6 mg/dL (1.8-2.4); POTASSIUM,K 3.3 mmol/L (3.5-5.1); PROTEIN TOTAL,TP 7.4 g/dL (6.4-8.2); SODIUM,NA 140 mmol/L (136-145)
[2024-01-16 05:56] LABS: ESTIMATED GFR 47 mL/min (>=60); ETHANOL BLOOD MEDICAL < 3 mg/dL (0)
[2024-01-16] MEDS: Magnesium Sulfate/Water 2 GM in Premix Bag 1 BAG IV ONE (07:35)
[2024-01-16] MEDS: Potassium Chloride 20 MEQ in Premix Bag 1 BAG IV ONE (07:35)
[2024-01-16] MEDS: Sodium Chloride 0.9% 2,000 ML IV ONE (07:35)
[2024-01-16 07:39] VITALS: BP 107/68; PULSE 73
[2024-01-16] MEDS: Albuterol/Ipratropium 3.0-0.5 MG/3 ML Neb Soln NEB ONE (07:42)
[2024-01-16] MEDS: LORazepam 1 MG Tab PO ONE (07:53)
[2024-01-16] MEDS: Potassium Chloride 10 MEQ Tab.ER PO ONE ×2 (07:53→09:21)
[2024-01-16 08:08] LABS: APPEARANCE,URINE CLEAR (CLEAR); BILIRUBIN,URINE MODERATE (NEGATIVE); COLOR,URINE DARK YELLOW (YELLOW); GLUCOSE,URINE NEGATIVE (NEGATIVE); KETONES,URINE 15 (NEGATIVE); LEUKOCYTE ESTERASE,URINE NEGATIVE (NEGATIVE); NITRITE,URINE NEGATIVE (NEGATIVE); OCCULT BLOOD,URINE TRACE-INTACT (NEGATIVE); PROTEIN,URINE 30 (NEGATIVE); UROBILINOGEN,URINE 0.2 mg/dL (0.2-1.0)
[2024-01-16 08:19] LABS: METHAMPHETAMINES,URINE POSITIVE (NEGATIVE)
[2024-01-16 08:20] LABS: AMPHETAMINES,URINE POSITIVE (NEGATIVE); BARBITURATES,URINE POSITIVE (NEGATIVE); BENZODIAZEPINE,URINE NEGATIVE (NEGATIVE); MDMA (ECSTASY), URINE POSITIVE (NEGATIVE); METHADONE,URINE NEGATIVE (NEGATIVE); OPIATES,URINE NEGATIVE (NEGATIVE); OXYCODONE,URINE NEGATIVE (NEGATIVE); PHENCYCLIDINE,URINE NEGATIVE (NEGATIVE); TCA,URINE NEGATIVE (NEGATIVE)
[2024-01-16 08:25] LABS: EPITHELIAL CELLS,URINE FEW /HPF (NOT SEEN); RBC,URINE 0-5 /HPF (0-5); WBC,URINE 0-5 /HPF (0-5/HPF)
[2024-01-16 08:26] LABS: BACTERIA,URINE MODERATE /HPF (0-FEW/HPF); MUCUS,URINE MODERATE /LPF (NOT SEEN)
[2024-01-16] MEDS: Levofloxacin/Dextrose 5%-Water 500 MG in Premix Bag 1 BAG IV ONE (09:20)
[2024-01-16] MEDS: Codeine/guaiFENesin 10-100 MG/5 ML Syrup 5 ML Cup PO ONE (09:21)
[2024-01-16] MEDS: Doxycycline Monohydrate 100 MG Cap PO ONE (09:28)
== END 2024-01-16 12:48 | disposition home or self-care (01) ==
LOC: DL.ED 05:04
DX: R41.82 Altered mental status, unspecified (principal); J18.9 Pneumonia, unspecified organism; E87.6 Hypokalemia; E83.42 Hypomagnesemia; N17.9 Acute kidney failure, unspecified; E86.9 Volume depletion, unspecified; F19.10 Other psychoactive substance abuse, uncomplicated; E66.9 Obesity, unspecified; Z68.42 Body mass index [BMI] 45.0-49.9, adult; F17.200 Nicotine dependence, unspecified, uncomplicated; Z88.6 Allergy status to analgesic agent; Z88.8 Allergy status to other drugs, medicaments and biological substances
CPT/HCPCS: 36415; 70450; 71045; 80053; 80305; 80307; 81001; 81025; 82140; 83690; 83735; 84484; 85025; 85379; 87635; 87804; 93005; 94640; 99285; A9270; 93010; J7620-GY; U0002

== ENCOUNTER 2024-03-28 16:32 | Emergency (ER) | payer MEDICAID, OTHER ==
[2024-03-28] MEDS ORDERED: Sodium Chloride 0.9% 10 ML Syringe FLUSH PRN (16:37)
[2024-03-28] MEDS: levETIRAcetam in NaCl (iso-os) 1,500 MG in Premix Bag 1 BAG IV ONE (16:55)
[2024-03-28 16:56] VITALS: BP 128/75; PULSE 71
[2024-03-28] MEDS: Sodium Chloride 0.9% 1,000 ML IV ONE (17:00)
[2024-03-28 17:26] LABS: BASOPHILS PERCENT AUTO 0.3 % (0.0-1.0); EOSINOPHILS PERCENT AUTO 0.9 % (1.0-3.0); HEMOGLOBIN 12.2 g/dL (12.0-16.0); LYMPHOCYTES PERCENT AUTO 17.2 % (20.5-50.1); MEAN CORPUSCULAR HEMOGLOBIN 27.1 pg (27.0-34.0); MEAN CORPUSCULAR HGB CONC 31.3 g/dL (33.0-35.0); MEAN CORPUSCULAR VOLUME 86.5 fL (80-100); MONOCYTES PERCENT AUTO 5.6 % (2-8); PLATELET COUNT,PLT 345 10^3/uL (150-450); RED BLOOD CELL COUNT 4.51 10^6/uL (4.2-5.4); WHITE BLOOD CELL COUNT,WBC 11.7 10^3/uL (5.0-10.0)
[2024-03-28 17:38] LABS: APPEARANCE,URINE SLIGHTLY CLOUDY (CLEAR); BILIRUBIN,URINE NEGATIVE (NEGATIVE); COLOR,URINE YELLOW (YELLOW); GLUCOSE,URINE NEGATIVE (NEGATIVE); KETONES,URINE NEGATIVE (NEGATIVE); LEUKOCYTE ESTERASE,URINE NEGATIVE (NEGATIVE); NITRITE,URINE NEGATIVE (NEGATIVE); OCCULT BLOOD,URINE MODERATE (NEGATIVE); PH,URINE 7.5 (5.0-9.0); PROTEIN,URINE NEGATIVE (NEGATIVE); UROBILINOGEN,URINE 0.2 mg/dL (0.2-1.0)
[2024-03-28 17:44] LABS: AMPHETAMINES,URINE NEGATIVE (NEGATIVE); BARBITURATES,URINE NEGATIVE (NEGATIVE); BENZODIAZEPINE,URINE NEGATIVE (NEGATIVE); MDMA (ECSTASY), URINE NEGATIVE (NEGATIVE); METHADONE,URINE NEGATIVE (NEGATIVE); METHAMPHETAMINES,URINE NEGATIVE (NEGATIVE); OPIATES,URINE NEGATIVE (NEGATIVE); OXYCODONE,URINE NEGATIVE (NEGATIVE); PHENCYCLIDINE,URINE NEGATIVE (NEGATIVE); TCA,URINE NEGATIVE (NEGATIVE)
[2024-03-28 17:54] LABS: LACTIC ACID 1.1 mmol/L (0.4-2.0)
[2024-03-28 17:55] LABS: EPITHELIAL CELLS,URINE MODERATE /HPF (NOT SEEN)
[2024-03-28 17:56] LABS: BACTERIA,URINE FEW /HPF (0-FEW/HPF); MUCUS,URINE FEW /LPF (NOT SEEN); RBC,URINE 30-40 /HPF (0-5)
[2024-03-28 17:59] LABS: ALANINE AMINOTRANSFERASE,ALT 11 U/L (14-59); ALBUMIN 3.4 g/dL (3.4-5.0); ALKALINE PHOSPHATASE 85 U/L (46-116); ANION GAP 10.3 mEq/L (7-13); ASPARTATE AMNIOTRANSFERASE,AST 12 U/L (15-37); BILIRUBIN TOTAL 0.2 mg/dL (0.2-1.0); BLOOD UREA NITROGEN,BUN 14 mg/dL (7-18); BUN/CREATININE RATIO 16.7 (No establ ref range); CALCIUM 8.7 mg/dL (8.5-10.1); CARBON DIOXIDE,CO2 28 mmol/L (21-32); CHLORIDE,CL 105 mmol/L (98-107); CREATININE 0.84 mg/dL (0.55-1.02); EST CRCL DRUG DOSING (CG) 101.08 mL/min; GLUCOSE RANDOM 95 mg/dL (70-99); POTASSIUM,K 4.3 mmol/L (3.5-5.1); PROTEIN TOTAL,TP 6.8 g/dL (6.4-8.2); SODIUM,NA 139 mmol/L (136-145); TSH ULTRASENSITIVE 1.67 uIU/mL (0.36-3.74)
[2024-03-28 18:00] LABS: ACETAMINOPHEN 0 ug/mL (10-30 (Therapeutic)); C-REACTIVE PROTEIN < 0.50 ng/dL (<=0.50); ESTIMATED GFR 93 mL/min (>=60)
[2024-03-28 18:01] LABS: ETHANOL BLOOD MEDICAL < 3 mg/dL (0)
[2024-03-28 18:02] LABS: INR 0.9 (0.9-1.2); PROTHROMBIN TIME 9.8 SEC (9.0-12.0); PTT,PARTIAL THROMBOPLSTIN TIME 28.3 SEC (22.0-34.0)
== END 2024-03-28 18:35 | disposition home or self-care (01) ==
LOC: DL.ED 16:32
DX: R56.9 Unspecified convulsions (principal); E03.9 Hypothyroidism, unspecified; E66.9 Obesity, unspecified; Z68.42 Body mass index [BMI] 45.0-49.9, adult; Z88.6 Allergy status to analgesic agent; Z88.8 Allergy status to other drugs, medicaments and biological substances
CPT/HCPCS: 36415; 70450; 71045; 80053; 80143; 80179; 80305; 80307; 81001; 81025; 82140; 82947; 83605; 83735; 84443; 84484; 85025; 85610; 85730; 86140; 87040; 96361; 96374; 99283; 99285; J1953; J7030

== ENCOUNTER 2024-04-04 10:27 | Emergency (ER) | payer MEDICAID, OTHER ==
[2024-04-04 11:17] LABS: BASOPHILS PERCENT AUTO 0.5 % (0.0-1.0); EOSINOPHILS PERCENT AUTO 2.6 % (1.0-3.0); HEMATOCRIT 39.5 % (37.0-47.0); HEMOGLOBIN 12.4 g/dL (12.0-16.0); LYMPHOCYTES PERCENT AUTO 21.2 % (20.5-50.1); MEAN CORPUSCULAR HEMOGLOBIN 27.1 pg (27.0-34.0); MEAN CORPUSCULAR HGB CONC 31.4 g/dL (33.0-35.0); MEAN CORPUSCULAR VOLUME 86.2 fL (80-100); MONOCYTES PERCENT AUTO 7.7 % (2-8); PLATELET COUNT,PLT 301 10^3/uL (150-450); RED BLOOD CELL COUNT 4.58 10^6/uL (4.2-5.4); WHITE BLOOD CELL COUNT,WBC 7.4 10^3/uL (5.0-10.0)
[2024-04-04 11:38] VITALS: BP 111/61; PULSE 61
[2024-04-04 11:40] LABS: A/G RATIO 0.91; ALBUMIN 3.2 g/dL (3.4-5.0); ANION GAP 12.2 mEq/L (7-13); BILIRUBIN TOTAL 0.2 mg/dL (0.2-1.0); BUN/CREATININE RATIO 17.1 (No establ ref range); CALCIUM 8.7 mg/dL (8.5-10.1); CREATININE 0.76 mg/dL (0.55-1.02); EST CRCL DRUG DOSING (CG) 100.47 mL/min; MAGNESIUM 1.7 mg/dL (1.8-2.4); POTASSIUM,K 4.2 mmol/L (3.5-5.1); PROTEIN TOTAL,TP 6.7 g/dL (6.4-8.2)
[2024-04-04 11:40] LABS: APPEARANCE,URINE CLEAR (CLEAR); BILIRUBIN,URINE NEGATIVE (NEGATIVE); COLOR,URINE YELLOW (YELLOW); GLUCOSE,URINE NEGATIVE (NEGATIVE); KETONES,URINE NEGATIVE (NEGATIVE); LEUKOCYTE ESTERASE,URINE NEGATIVE (NEGATIVE); NITRITE,URINE NEGATIVE (NEGATIVE); OCCULT BLOOD,URINE NEGATIVE (NEGATIVE); PROTEIN,URINE NEGATIVE (NEGATIVE); UROBILINOGEN,URINE 0.2 mg/dL (0.2-1.0)
[2024-04-04 11:43] LABS: AMPHETAMINES,URINE NEGATIVE (NEGATIVE); BARBITURATES,URINE NEGATIVE (NEGATIVE); BENZODIAZEPINE,URINE POSITIVE (NEGATIVE); MDMA (ECSTASY), URINE NEGATIVE (NEGATIVE); METHADONE,URINE NEGATIVE (NEGATIVE); METHAMPHETAMINES,URINE NEGATIVE (NEGATIVE); OPIATES,URINE NEGATIVE (NEGATIVE); OXYCODONE,URINE NEGATIVE (NEGATIVE); PHENCYCLIDINE,URINE NEGATIVE (NEGATIVE); TCA,URINE NEGATIVE (NEGATIVE)
[2024-04-04 11:45] LABS: LACTIC ACID 1.1 mmol/L (0.4-2.0)
== END 2024-04-04 11:58 | disposition home or self-care (01) ==
LOC: DL.ED 10:27
DX: Z76.5 Malingerer [conscious simulation] (principal); E03.9 Hypothyroidism, unspecified; E66.9 Obesity, unspecified; Z79.01 Long term (current) use of anticoagulants; Z79.899 Other long term (current) drug therapy; Z88.8 Allergy status to other drugs, medicaments and biological substances
CPT/HCPCS: 36415; 80053; 80305-QW; 81003; 83605; 83735; 85025; 99284

== ENCOUNTER 2024-04-19 16:10 | Emergency (ER) | payer MEDICAID, OTHER ==
[~2024-04-19 16:10] MED LIST changes: -Ondansetron 4 MG/2 ML SDV IVPUSH ONE
[2024-04-19 16:32] LABS: BASOPHILS PERCENT AUTO 0.5 % (0.0-1.0); EOSINOPHILS PERCENT AUTO 2.3 % (1.0-3.0); HEMATOCRIT 38.6 % (37.0-47.0); HEMOGLOBIN 12.5 g/dL (12.0-16.0); LYMPHOCYTES PERCENT AUTO 29.9 % (20.5-50.1); MEAN CORPUSCULAR HEMOGLOBIN 27.7 pg (27.0-34.0); MEAN CORPUSCULAR HGB CONC 32.4 g/dL (33.0-35.0); MEAN CORPUSCULAR VOLUME 85.6 fL (80-100); MONOCYTES PERCENT AUTO 6.9 % (2-8); NEUTROPHILS PERCENT AUTO 60.4 % (42.2-75.2); PLATELET COUNT,PLT 378 10^3/uL (150-450); RED BLOOD CELL COUNT 4.51 10^6/uL (4.2-5.4); WHITE BLOOD CELL COUNT,WBC 7.7 10^3/uL (5.0-10.0)
[2024-04-19 16:50] LABS: LACTIC ACID 0.9 mmol/L (0.4-2.0)
[2024-04-19 16:55] LABS: APPEARANCE,URINE CLEAR (CLEAR); BILIRUBIN,URINE NEGATIVE (NEGATIVE); COLOR,URINE YELLOW (YELLOW); GLUCOSE,URINE NEGATIVE (NEGATIVE); KETONES,URINE NEGATIVE (NEGATIVE); LEUKOCYTE ESTERASE,URINE NEGATIVE (NEGATIVE); NITRITE,URINE NEGATIVE (NEGATIVE); OCCULT BLOOD,URINE LARGE (NEGATIVE); PROTEIN,URINE NEGATIVE (NEGATIVE); UROBILINOGEN,URINE 0.2 mg/dL (0.2-1.0)
[2024-04-19 16:58] LABS: ALANINE AMINOTRANSFERASE,ALT 16 U/L (14-59); ALBUMIN 3.4 g/dL (3.4-5.0); ALKALINE PHOSPHATASE 91 U/L (46-116); ANION GAP 12.8 mEq/L (7-13); ASPARTATE AMNIOTRANSFERASE,AST 13 U/L (15-37); BILIRUBIN TOTAL 0.2 mg/dL (0.2-1.0); BLOOD UREA NITROGEN,BUN 11 mg/dL (7-18); BUN/CREATININE RATIO 13.3 (No establ ref range); C-REACTIVE PROTEIN < 0.50 ng/dL (<=0.50); CARBON DIOXIDE,CO2 26 mmol/L (21-32); CHLORIDE,CL 105 mmol/L (98-107); CREATININE 0.83 mg/dL (0.55-1.02); EST CRCL DRUG DOSING (CG) 85.13 mL/min; ESTIMATED GFR 94 mL/min (>=60); ETHANOL BLOOD MEDICAL < 3 mg/dL (0); GLUCOSE RANDOM 93 mg/dL (70-99); LIPASE 39 U/L (16-77); MAGNESIUM 1.8 mg/dL (1.8-2.4); PHOSPHORUS 3.2 mg/dL (2.6-4.7); POTASSIUM,K 3.8 mmol/L (3.5-5.1); PROTEIN TOTAL,TP 6.9 g/dL (6.4-8.2); SODIUM,NA 140 mmol/L (136-145); TSH ULTRASENSITIVE 2.06 uIU/mL (0.36-3.74)
[2024-04-19 16:59] LABS: AMPHETAMINES,URINE NEGATIVE (NEGATIVE); BARBITURATES,URINE NEGATIVE (NEGATIVE); BENZODIAZEPINE,URINE POSITIVE (NEGATIVE); MDMA (ECSTASY), URINE NEGATIVE (NEGATIVE); METHADONE,URINE NEGATIVE (NEGATIVE); METHAMPHETAMINES,URINE NEGATIVE (NEGATIVE); OPIATES,URINE NEGATIVE (NEGATIVE); OXYCODONE,URINE NEGATIVE (NEGATIVE); PHENCYCLIDINE,URINE NEGATIVE (NEGATIVE); TCA,URINE NEGATIVE (NEGATIVE)
[2024-04-19 17:03] LABS: BACTERIA,URINE OCCASIONAL /HPF (0-FEW/HPF); EPITHELIAL CELLS,URINE RARE /HPF (NOT SEEN); MUCUS,URINE RARE /LPF (NOT SEEN); WBC,URINE NOT SEEN /HPF (0-5/HPF)
[2024-04-19 17:45] VITALS: BP 132/91; PULSE 62
== END 2024-04-19 17:32 | disposition home or self-care (01) ==
LOC: DL.ED 16:10
DX: Z76.89 Persons encountering health services in other specified circumstances (principal); Z76.5 Malingerer [conscious simulation]; E03.9 Hypothyroidism, unspecified; E66.9 Obesity, unspecified; Z79.01 Long term (current) use of anticoagulants; Z79.890 Hormone replacement therapy; Z79.899 Other long term (current) drug therapy; Z79.891 Long term (current) use of opiate analgesic; Z88.6 Allergy status to analgesic agent; Z88.8 Allergy status to other drugs, medicaments and biological substances; Z68.43 Body mass index [BMI] 50.0-59.9, adult
CPT/HCPCS: 36415; 80053; 80305-QW; 80307; 81001; 81025; 83605; 83690; 83735; 84100; 84443; 85025; 86140; 99284

== ENCOUNTER 2024-06-27 19:04 | Emergency (ER) | payer MEDICAID, OTHER ==
[2024-06-27 19:41] VITALS: BP 112/83; PULSE 81
== END 2024-06-27 19:42 | disposition home or self-care (01) ==
LOC: DL.ED 19:04
DX: F32.A Depression, unspecified (principal); E03.9 Hypothyroidism, unspecified; E66.9 Obesity, unspecified; Z88.8 Allergy status to other drugs, medicaments and biological substances; Z79.51 Long term (current) use of inhaled steroids; Z79.01 Long term (current) use of anticoagulants; Z79.890 Hormone replacement therapy; Z79.899 Other long term (current) drug therapy
CPT/HCPCS: 99284

== ENCOUNTER 2024-07-10 18:27 | Emergency (ER) | payer MEDICAID, OTHER ==
[2024-07-10 19:04] VITALS: BP 124/76; PULSE 72
[2024-07-10] MEDS: Acetaminophen 500 MG Tab PO ONE (19:06)
[2024-07-10 19:35] LABS: BILIRUBIN,URINE NEGATIVE (NEGATIVE); GLUCOSE,URINE NEGATIVE (NEGATIVE); KETONES,URINE NEGATIVE (NEGATIVE); LEUKOCYTE ESTERASE,URINE NEGATIVE (NEGATIVE); NITRITE,URINE NEGATIVE (NEGATIVE); OCCULT BLOOD,URINE TRACE-INTACT (NEGATIVE); PH,URINE 6.5 (5.0-9.0); PROTEIN,URINE NEGATIVE (NEGATIVE); UROBILINOGEN,URINE 0.2 mg/dL (0.2-1.0)
[2024-07-10 19:36] LABS: APPEARANCE,URINE SLIGHTLY CLOUDY (CLEAR); COLOR,URINE LIGHT YELLOW (YELLOW)
[2024-07-10 19:40] LABS: AMPHETAMINES,URINE POSITIVE (NEGATIVE); BARBITURATES,URINE NEGATIVE (NEGATIVE); BENZODIAZEPINE,URINE NEGATIVE (NEGATIVE); MDMA (ECSTASY), URINE NEGATIVE (NEGATIVE); METHADONE,URINE NEGATIVE (NEGATIVE); METHAMPHETAMINES,URINE POSITIVE (NEGATIVE); OPIATES,URINE NEGATIVE (NEGATIVE); OXYCODONE,URINE NEGATIVE (NEGATIVE); PHENCYCLIDINE,URINE NEGATIVE (NEGATIVE); TCA,URINE NEGATIVE (NEGATIVE)
[2024-07-10 19:47] LABS: AMORPHOUS SEDIMENT,URINE FEW /HPF (NOT SEEN); BACTERIA,URINE FEW /HPF (0-FEW/HPF); EPITHELIAL CELLS,URINE MODERATE /HPF (NOT SEEN); WBC,URINE 0-5 /HPF (0-5/HPF)
[2024-07-10] MEDS: Dexamethasone 4 MG/ML SDV PO ONE (20:40)
[2024-07-10] MEDS: Orphenadrine 60 MG/2 ML Inj IM ONE (20:40)
== END 2024-07-10 20:58 | disposition home or self-care (01) ==
LOC: DL.ED 18:27
DX: M51.360 Other intervertebral disc degeneration, lumbar region with discogenic back pain only (principal); F15.10 Other stimulant abuse, uncomplicated; E66.9 Obesity, unspecified; E03.9 Hypothyroidism, unspecified; Z88.8 Allergy status to other drugs, medicaments and biological substances; Z79.890 Hormone replacement therapy; Z79.899 Other long term (current) drug therapy
CPT/HCPCS: 72100; 80305; 81001; 81025; 96372; 99283; 99284; A9270; J1100; J2360

== ENCOUNTER 2024-08-26 19:37 | Emergency (ER) | payer MEDICAID, OTHER | END 2024-08-26 19:58 | disposition left against medical advice (07) | LOC: DL.ED 19:37 | DX: Z53.21 Procedure and treatment not carried out due to patient leaving prior to being seen by health care provider (principal) ==

== ENCOUNTER 2024-08-26 21:16 | Emergency (ER) | payer MEDICAID, OTHER ==
[2024-08-26] MEDS: Sodium Chloride 0.9% 10 ML Syringe FLUSH PRN (22:25)
[2024-08-26] MEDS: Lactated Ringers 1,000 ML IV ONE (22:30)
[2024-08-26] MEDS: Ondansetron 4 MG/2 ML SDV IVPUSH ONE (22:31)
[2024-08-26 22:34] LABS: HEMATOCRIT 40.8 % (37.0-47.0); HEMOGLOBIN 13.1 g/dL (12.0-16.0); MEAN CORPUSCULAR HEMOGLOBIN 26.7 pg (27.0-34.0); MEAN CORPUSCULAR HGB CONC 32.1 g/dL (33.0-35.0); MEAN CORPUSCULAR VOLUME 83.3 fL (80-100); PLATELET COUNT,PLT 359 10^3/uL (150-450); WHITE BLOOD CELL COUNT,WBC 10.3 10^3/uL (5.0-10.0)
[2024-08-26 22:36] LABS: APPEARANCE,URINE CLEAR (CLEAR); BILIRUBIN,URINE SMALL (NEGATIVE); COLOR,URINE YELLOW (YELLOW); GLUCOSE,URINE NEGATIVE (NEGATIVE); KETONES,URINE 15 (NEGATIVE); LEUKOCYTE ESTERASE,URINE NEGATIVE (NEGATIVE); NITRITE,URINE NEGATIVE (NEGATIVE); OCCULT BLOOD,URINE TRACE-INTACT (NEGATIVE); PH,URINE 6.5 (5.0-9.0); PROTEIN,URINE 100 (NEGATIVE); UROBILINOGEN,URINE 0.2 mg/dL (0.2-1.0)
[2024-08-26 22:41] LABS: AMPHETAMINES,URINE POSITIVE (NEGATIVE); BARBITURATES,URINE NEGATIVE (NEGATIVE); BENZODIAZEPINE,URINE NEGATIVE (NEGATIVE); MDMA (ECSTASY), URINE NEGATIVE (NEGATIVE); METHADONE,URINE NEGATIVE (NEGATIVE); METHAMPHETAMINES,URINE POSITIVE (NEGATIVE); OPIATES,URINE NEGATIVE (NEGATIVE); OXYCODONE,URINE NEGATIVE (NEGATIVE); PHENCYCLIDINE,URINE NEGATIVE (NEGATIVE); TCA,URINE NEGATIVE (NEGATIVE)
[2024-08-26 22:42] LABS: EOSINOPHILS PERCENT AUTO 1.7 % (1.0-3.0); LYMPHOCYTES PERCENT AUTO 23.3 % (20.5-50.1); NEUTROPHILS PERCENT AUTO 65.4 % (42.2-75.2)
[2024-08-26 22:43] LABS: BASOPHILS PERCENT AUTO 0.6 % (0.0-1.0)
[2024-08-26 23:02] LABS: A/G RATIO 0.9; ALANINE AMINOTRANSFERASE,ALT 19 U/L (14-59); ALBUMIN 3.6 g/dL (3.4-5.0); ALKALINE PHOSPHATASE 104 U/L (46-116); ANION GAP 13.4 mEq/L (7-13); ASPARTATE AMNIOTRANSFERASE,AST 18 U/L (15-37); BILIRUBIN TOTAL 0.2 mg/dL (0.2-1.0); BLOOD UREA NITROGEN,BUN 18 mg/dL (7-18); BUN/CREATININE RATIO 15.5 (No establ ref range); CARBON DIOXIDE,CO2 23 mmol/L (21-32); CHLORIDE,CL 107 mmol/L (98-107); CREATININE 1.16 mg/dL (0.55-1.02); GLUCOSE RANDOM 118 mg/dL (70-99); LIPASE 33 U/L (16-77); POTASSIUM,K 3.4 mmol/L (3.5-5.1); PROTEIN TOTAL,TP 7.5 g/dL (6.4-8.2); SODIUM,NA 140 mmol/L (136-145); TSH ULTRASENSITIVE 2.67 uIU/mL (0.36-3.74)
[2024-08-26 23:03] LABS: ESTIMATED GFR 63 mL/min (>=60); ETHANOL BLOOD MEDICAL < 3 mg/dL (0)
[2024-08-26 23:07] VITALS: BP 91/67; PULSE 59
[2024-08-26 23:17] LABS: BACTERIA,URINE MODERATE /HPF (0-FEW/HPF); MUCUS,URINE MANY /LPF (NOT SEEN)
[2024-08-26 23:18] LABS: CALCIUM OXALATE CRYSTALS,URINE FEW /HPF (NOT SEEN); EPITHELIAL CELLS,URINE MODERATE /HPF (NOT SEEN)
[2024-08-26] MEDS: Prochlorperazine 25 MG Supp RECTAL ONE (23:18)
[2024-08-26 23:21] LABS: EOSINOPHILS PERCENT MAN 1 % (1-3); LYMPHOCYTES PERCENT MAN 22 % (20-50); MONOCYTES PERCENT MAN 8 % (2-8); SEG NEUTROPHILS PERCENT MAN 69 % (42-75)
[2024-08-26] MEDS: Take Home: Ondansetron 4 MG Tab.DIS, 5 Tab Pack PO ONE (23:41)
== END 2024-08-26 23:50 | disposition home or self-care (01) ==
LOC: DL.ED 21:16
DX: K52.9 Noninfective gastroenteritis and colitis, unspecified (principal); F15.10 Other stimulant abuse, uncomplicated; E03.9 Hypothyroidism, unspecified; F17.210 Nicotine dependence, cigarettes, uncomplicated; Z88.8 Allergy status to other drugs, medicaments and biological substances; Z79.51 Long term (current) use of inhaled steroids; Z79.01 Long term (current) use of anticoagulants; Z79.890 Hormone replacement therapy; Z79.899 Other long term (current) drug therapy
CPT/HCPCS: 36415; 80053; 80305; 80307; 81001; 81025; 83690; 83735; 84443; 85025; 96361; 96374; 99284; A9270; J2405; J7120; Q0162

== ENCOUNTER 2024-09-11 12:32 | Emergency (ER) | payer MEDICAID ==
[2024-09-11] MEDS ORDERED: Sodium Chloride 0.9% 10 ML Syringe FLUSH PRN (12:50)
[2024-09-11 13:04] LABS: BASOPHILS PERCENT AUTO 0.4 % (0.0-1.0); HEMATOCRIT 42.6 % (37.0-47.0); MEAN CORPUSCULAR HEMOGLOBIN 27.4 pg (27.0-34.0); MEAN CORPUSCULAR HGB CONC 32.9 g/dL (33.0-35.0); MEAN CORPUSCULAR VOLUME 83.4 fL (80-100); MONOCYTES PERCENT AUTO 8.1 % (2-8); NEUTROPHILS PERCENT AUTO 72.5 % (42.2-75.2); PLATELET COUNT,PLT 317 10^3/uL (150-450); RED BLOOD CELL COUNT 5.11 10^6/uL (4.2-5.4); WHITE BLOOD CELL COUNT,WBC 10.2 10^3/uL (5.0-10.0)
[2024-09-11 13:22] LABS: INR 0.9 (0.9-1.2); PROTHROMBIN TIME 9.8 SEC (9.0-12.0)
[2024-09-11] MEDS: Iopamidol 612 MG/ML 100 ML Bottle IVPUSH ONE (13:23)
[2024-09-11 13:24] LABS: ANION GAP 10.6 mEq/L (7-13); BILIRUBIN TOTAL 0.5 mg/dL (0.2-1.0); BUN/CREATININE RATIO 14.2 (No establ ref range); C-REACTIVE PROTEIN 3.65 ng/dL (<=0.50); CALCIUM 9.3 mg/dL (8.5-10.1); CREATININE 1.27 mg/dL (0.55-1.02); EST CRCL DRUG DOSING (CG) 55.63 mL/min; POTASSIUM,K 3.6 mmol/L (3.5-5.1); PROTEIN TOTAL,TP 8.2 g/dL (6.4-8.2)
[2024-09-11] MEDS: Sodium Chloride 0.9% 1,000 ML IV ONE (13:38)
[2024-09-11 14:22] VITALS: BP 143/75; PULSE 56
== END 2024-09-11 14:30 | disposition home or self-care (01) ==
LOC: DL.ED 12:32
DX: L03.114 Cellulitis of left upper limb (principal); E03.9 Hypothyroidism, unspecified; E66.9 Obesity, unspecified; F17.210 Nicotine dependence, cigarettes, uncomplicated; Z88.8 Allergy status to other drugs, medicaments and biological substances; Z79.899 Other long term (current) drug therapy; Z79.890 Hormone replacement therapy; Z68.42 Body mass index [BMI] 45.0-49.9, adult
CPT/HCPCS: 36415; 73201-LT; 80053; 81025; 83605; 85025; 85610; 85730; 86140; 96360; 99284-25; J7030; Q9967

== ENCOUNTER 2024-10-07 15:42 | Emergency (ER) | payer MEDICAID ==
[2024-10-07 16:20] LABS: BASOPHILS PERCENT AUTO 0.1 % (0.0-1.0); EOSINOPHILS PERCENT AUTO 0.1 % (1.0-3.0); HEMATOCRIT 42.3 % (37.0-47.0); HEMOGLOBIN 13.5 g/dL (12.0-16.0); LYMPHOCYTES PERCENT AUTO 5.8 % (20.5-50.1); MEAN CORPUSCULAR HEMOGLOBIN 26.8 pg (27.0-34.0); MEAN CORPUSCULAR HGB CONC 31.9 g/dL (33.0-35.0); MEAN CORPUSCULAR VOLUME 83.9 fL (80-100); MONOCYTES PERCENT AUTO 6.7 % (2-8); NEUTROPHILS PERCENT AUTO 87.3 % (42.2-75.2); PLATELET COUNT,PLT 210 10^3/uL (150-450); RED BLOOD CELL COUNT 5.04 10^6/uL (4.2-5.4); WHITE BLOOD CELL COUNT,WBC 9.7 10^3/uL (5.0-10.0)
[2024-10-07 16:25] LABS: APPEARANCE,URINE SLIGHTLY CLOUDY (CLEAR); BILIRUBIN,URINE NEGATIVE (NEGATIVE); COLOR,URINE YELLOW (YELLOW); GLUCOSE,URINE NEGATIVE (NEGATIVE); KETONES,URINE NEGATIVE (NEGATIVE); LEUKOCYTE ESTERASE,URINE MODERATE (NEGATIVE); NITRITE,URINE POSITIVE (NEGATIVE); OCCULT BLOOD,URINE MODERATE (NEGATIVE); PH,URINE 6.5 (5.0-9.0); PROTEIN,URINE 100 (NEGATIVE); UROBILINOGEN,URINE 0.2 mg/dL (0.2-1.0)
[2024-10-07 16:34] LABS: BACTERIA,URINE MODERATE /HPF (0-FEW/HPF); EPITHELIAL CELLS,URINE FEW /HPF (NOT SEEN); MUCUS,URINE FEW /LPF (NOT SEEN); RBC,URINE 0-5 /HPF (0-5); WBC,URINE >100 /HPF (0-5/HPF)
[2024-10-07 16:36] LABS: ALBUMIN 2.9 g/dL (3.4-5.0); ANION GAP 12.7 mEq/L (7-13); BILIRUBIN TOTAL 0.6 mg/dL (0.2-1.0); BUN/CREATININE RATIO 7.4 (No establ ref range); CALCIUM 8.5 mg/dL (8.5-10.1); CREATININE 0.95 mg/dL (0.55-1.02); EST CRCL DRUG DOSING (CG) 73.67 mL/min; POTASSIUM,K 3.7 mmol/L (3.5-5.1); PROTEIN TOTAL,TP 7.1 g/dL (6.4-8.2)
[2024-10-07 16:38] LABS: A/G RATIO 0.69
[2024-10-07 16:58] VITALS: BP 152/52; PULSE 93
[2024-10-07] MEDS: Cephalexin 500 MG Cap PO ONE (16:58)
[2024-10-07] MEDS: Acetaminophen 500 MG Tab PO ONE (17:01)
== END 2024-10-07 17:00 | disposition home or self-care (01) ==
LOC: DL.ED 15:42
DX: N39.0 Urinary tract infection, site not specified (principal); E03.9 Hypothyroidism, unspecified; E66.9 Obesity, unspecified; Z88.8 Allergy status to other drugs, medicaments and biological substances; Z79.899 Other long term (current) drug therapy; Z79.890 Hormone replacement therapy; Z68.42 Body mass index [BMI] 45.0-49.9, adult
CPT/HCPCS: 36415; 80053; 81001; 81025; 85025; 87086; 87088; 87186; 99284; A9270

== ENCOUNTER 2024-12-07 01:29 | Emergency (ER) | payer MEDICAID, OTHER ==
[2024-12-07 02:20] LABS: BASOPHILS PERCENT AUTO 0.5 % (0.0-1.0); EOSINOPHILS PERCENT AUTO 3.2 % (1.0-3.0); LYMPHOCYTES PERCENT AUTO 24.6 % (20.5-50.1); MONOCYTES PERCENT AUTO 6.6 % (2-8); NEUTROPHILS PERCENT AUTO 65.1 % (42.2-75.2); PLATELET COUNT,PLT 324 10^3/uL (150-450); RED BLOOD CELL COUNT 4.39 10^6/uL (4.2-5.4); WHITE BLOOD CELL COUNT,WBC 6.7 10^3/uL (5.0-10.0)
[2024-12-07 02:44] LABS: HCG QUALITATIVE,SERUM NEGATIVE (NEGATIVE)
[2024-12-07 02:54] LABS: ALANINE AMINOTRANSFERASE,ALT 18 U/L (14-59); ASPARTATE AMNIOTRANSFERASE,AST 16 U/L (15-37); BILIRUBIN TOTAL 0.2 mg/dL (0.2-1.0); BLOOD UREA NITROGEN,BUN 11 mg/dL (7-18); CARBON DIOXIDE,CO2 23 mmol/L (21-32); CHLORIDE,CL 112 mmol/L (98-107); CREATININE 0.99 mg/dL (0.55-1.02); EST CRCL DRUG DOSING (CG) 70.69 mL/min; ETHANOL BLOOD MEDICAL 186 mg/dL (0); GLUCOSE RANDOM 100 mg/dL (70-99); POTASSIUM,K 3.5 mmol/L (3.5-5.1); PROTEIN TOTAL,TP 6.5 g/dL (6.4-8.2); SODIUM,NA 145 mmol/L (136-145)
[2024-12-07 02:55] LABS: A/G RATIO 0.86; ESTIMATED GFR 76 mL/min (>=60)
[2024-12-07 08:45] VITALS: BP 129/80; PULSE 61
== END 2024-12-07 08:26 | disposition home or self-care (01) ==
LOC: DL.ED 01:29
DX: S16.1XXA Strain of muscle, fascia and tendon at neck level, initial encounter (principal); S00.83XA Contusion of other part of head, initial encounter; S93.401A Sprain of unspecified ligament of right ankle, initial encounter; E03.9 Hypothyroidism, unspecified; E66.9 Obesity, unspecified; Z79.899 Other long term (current) drug therapy; Z79.01 Long term (current) use of anticoagulants; Z88.8 Allergy status to other drugs, medicaments and biological substances; Z88.6 Allergy status to analgesic agent; Z88.5 Allergy status to narcotic agent; Y00.XXXA Assault by blunt object, initial encounter
CPT/HCPCS: 36415; 70450; 72125; 73610-RT; 80053; 80307; 84703; 85025; 99284

== ENCOUNTER 2024-12-14 17:15 | Emergency (ER) | payer MEDICAID, OTHER ==
[2024-12-14] MEDS: Midazolam 1 MG/ML 2 ML SDV IVPUSH ONE ×2 (17:09→18:51)
[2024-12-14 17:15] LABS: BASOPHILS PERCENT AUTO 0.3 % (0.0-1.0); EOSINOPHILS PERCENT AUTO 1.9 % (1.0-3.0); LYMPHOCYTES PERCENT AUTO 19.4 % (20.5-50.1); MONOCYTES PERCENT AUTO 9.8 % (2-8); NEUTROPHILS PERCENT AUTO 68.6 % (42.2-75.2); PLATELET COUNT,PLT 417 10^3/uL (150-450); RED BLOOD CELL COUNT 4.75 10^6/uL (4.2-5.4); WHITE BLOOD CELL COUNT,WBC 9.2 10^3/uL (5.0-10.0)
[2024-12-14] MEDS: Lactated Ringers 1,000 ML IV ONE ×2 (17:17→19:26)
[2024-12-14 17:29] LABS: INR 0.9 (0.9-1.2)
[2024-12-14 17:33] LABS: HCG QUALITATIVE,SERUM NEGATIVE (NEGATIVE)
[2024-12-14 17:41] LABS: A/G RATIO 1.0; ALANINE AMINOTRANSFERASE,ALT 22 U/L (14-59); ASPARTATE AMNIOTRANSFERASE,AST 23 U/L (15-37); BILIRUBIN TOTAL 0.6 mg/dL (0.2-1.0); BLOOD UREA NITROGEN,BUN 24 mg/dL (7-18); CARBON DIOXIDE,CO2 23 mmol/L (21-32); CHLORIDE,CL 105 mmol/L (98-107); CREATININE 1.50 mg/dL (0.55-1.02); ESTIMATED GFR 46 mL/min (>=60); GLUCOSE RANDOM 74 mg/dL (70-99); POTASSIUM,K 3.5 mmol/L (3.5-5.1); PROTEIN TOTAL,TP 8.3 g/dL (6.4-8.2); SODIUM,NA 140 mmol/L (136-145); TSH ULTRASENSITIVE 2.97 uIU/mL (0.36-3.74)
[2024-12-14 17:42] LABS: ETHANOL BLOOD MEDICAL < 3 mg/dL (0)
[2024-12-14 18:44] LABS: APPEARANCE,URINE SLIGHTLY CLOUDY (CLEAR); GLUCOSE,URINE NEGATIVE (NEGATIVE); OCCULT BLOOD,URINE LARGE (NEGATIVE)
[2024-12-14 18:48] LABS: AMPHETAMINES,URINE POSITIVE (NEGATIVE); BARBITURATES,URINE NEGATIVE (NEGATIVE); MDMA (ECSTASY), URINE POSITIVE (NEGATIVE); METHAMPHETAMINES,URINE POSITIVE (NEGATIVE); OPIATES,URINE NEGATIVE (NEGATIVE); OXYCODONE,URINE NEGATIVE (NEGATIVE); PHENCYCLIDINE,URINE NEGATIVE (NEGATIVE); TCA,URINE NEGATIVE (NEGATIVE)
[2024-12-14 18:52] LABS: EPITHELIAL CELLS,URINE MODERATE /HPF (NOT SEEN)
[2024-12-14] MEDS: Iopamidol 755 Mg/ML 100 ML Bottle IVPUSH ONE (18:58)
[2024-12-15 01:50] VITALS: BP 110/76; PULSE 56
== END 2024-12-15 06:34 | disposition still patient (30) ==
LOC: DL.ED 17:15
DX: F15.959 Other stimulant use, unspecified with stimulant-induced psychotic disorder, unspecified (principal); E03.9 Hypothyroidism, unspecified; E66.9 Obesity, unspecified; Z79.899 Other long term (current) drug therapy; Z79.01 Long term (current) use of anticoagulants; Z88.8 Allergy status to other drugs, medicaments and biological substances; Z88.6 Allergy status to analgesic agent
CPT/HCPCS: 36415; 71045; 71275; 80053; 80143; 80179; 80305; 80307; 81001; 83690; 84443; 84703; 85025; 85610; 86850; 86900; 86901; 93005; 96361; 96372; 96374; 96376; 99285; J2250; J2359; J7120; Q9967

== ENCOUNTER 2025-02-11 23:07 | Emergency (ER) | payer MEDICAID ==
[2025-02-11] MEDS ORDERED: Ketorolac 30 MG/ML SDV IM ONE (23:25)
[2025-02-11] MEDS: Ondansetron 4 MG/2 ML SDV IVPUSH ONE (23:52)
[2025-02-11] MEDS: Ketorolac 30 MG/ML SDV IVPUSH ONE (23:53)
[2025-02-11] MEDS: Thiamine 100 MG in Sodium Chloride 0.9% 1,000 ML IV ONE (23:53)
[2025-02-11 23:55] LABS: BASOPHILS PERCENT AUTO 0.4 % (0.0-1.0); EOSINOPHILS PERCENT AUTO 3.9 % (1.0-3.0); LYMPHOCYTES PERCENT AUTO 33.0 % (20.5-50.1); MONOCYTES PERCENT AUTO 8.5 % (2-8); NEUTROPHILS PERCENT AUTO 54.2 % (42.2-75.2); PLATELET COUNT,PLT 352 10^3/uL (150-450); RED BLOOD CELL COUNT 4.55 10^6/uL (4.2-5.4); WHITE BLOOD CELL COUNT,WBC 6.7 10^3/uL (5.0-10.0)
[2025-02-11 23:59] LABS: APPEARANCE,URINE CLEAR (CLEAR); GLUCOSE,URINE NEGATIVE (NEGATIVE); OCCULT BLOOD,URINE NEGATIVE (NEGATIVE)
[2025-02-12 00:05] LABS: AMPHETAMINES,URINE NEGATIVE (NEGATIVE); BARBITURATES,URINE NEGATIVE (NEGATIVE); MDMA (ECSTASY), URINE NEGATIVE (NEGATIVE); METHAMPHETAMINES,URINE POSITIVE (NEGATIVE); OPIATES,URINE NEGATIVE (NEGATIVE); OXYCODONE,URINE NEGATIVE (NEGATIVE); PHENCYCLIDINE,URINE NEGATIVE (NEGATIVE); TCA,URINE NEGATIVE (NEGATIVE)
[2025-02-12 00:12] LABS: ALANINE AMINOTRANSFERASE,ALT 19.0 U/L (14-59); ASPARTATE AMNIOTRANSFERASE,AST 16.0 U/L (15-37); BILIRUBIN TOTAL 0.2 mg/dL (0.2-1.0); BLOOD UREA NITROGEN,BUN 9.0 mg/dL (7-18); CARBON DIOXIDE,CO2 27.0 mmol/L (21-32); CHLORIDE,CL 105.0 mmol/L (98-107); CREATININE 0.72 mg/dL (0.55-1.02); EST CRCL DRUG DOSING (CG) 97.2 mL/min; ETHANOL BLOOD MEDICAL 117.0 mg/dL (0); GLUCOSE RANDOM 88.0 mg/dL (70-99); POTASSIUM,K 3.8 mmol/L (3.5-5.1); PROTEIN TOTAL,TP 7.2 g/dL (6.4-8.2); SODIUM,NA 141.0 mmol/L (136-145)
[2025-02-12 00:14] LABS: LACTIC ACID 1.1 mmol/L (0.4-2.0)
[2025-02-12 00:15] LABS: EPITHELIAL CELLS,URINE FEW /HPF (NOT SEEN)
[2025-02-12 00:17] LABS: A/G RATIO 0.85; ESTIMATED GFR 111.0 mL/min (>=60)
[2025-02-12] MEDS: Iopamidol 612 MG/ML 100 ML Bottle IVPUSH ONE (00:58)
[2025-02-12] MEDS: Nitrofurantoin Monohydrate/Macrocrystalline 100 MG Cap PO ONE (02:18)
[2025-02-12] MEDS: Sennosides/Docusate Sodium 50-8.6 MG Tab PO ONE (02:18)
[2025-02-12 02:26] VITALS: BP 115/63; PULSE 55
[2025-02-13 12:47] LABS: C.TRACHOMATIS BY TMA Negative (Negative); M GENITALIUM Positive (Negative); M GENITALIUM SOURCE Urine; N.GONORRHOEAE BY TMA Negative (Negative)
== END 2025-02-12 02:24 | disposition home or self-care (01) ==
LOC: DL.ED 23:07
DX: K59.00 Constipation, unspecified (principal); N39.0 Urinary tract infection, site not specified; Z11.3 Encounter for screening for infections with a predominantly sexual mode of transmission; E03.9 Hypothyroidism, unspecified; F17.210 Nicotine dependence, cigarettes, uncomplicated; Z88.6 Allergy status to analgesic agent; Z88.8 Allergy status to other drugs, medicaments and biological substances; Z86.718 Personal history of other venous thrombosis and embolism; Z79.890 Hormone replacement therapy
CPT/HCPCS: 36415; 74177; 80053; 80305; 80307; 81001; 81025; 83605; 85025; 87491; 87563; 87591; 96365; 96375; 99284; A9270; J1885; J2405; J3411; Q9967; 81003